=== PATIENT | male | born 1940 | race Caucasian/White ===

== ENCOUNTER → 2021-07-05 | Outpatient (CLI) | payer MEDICARE | END | disposition home or self-care (01) | LOC: LABPAT 11:28 | PROVIDERS: ATTEND Orthopaedic Surgery | DX: Z01.812 Encounter for preprocedural laboratory examination (principal); Z22.322 Carrier or suspected carrier of Methicillin resistant Staphylococcus aureus | CPT/HCPCS: 87070 ==

== ENCOUNTER 2021-07-09 05:33 | Day surgery (SDC) | payer MEDICARE ==
[2021-07-05 09:27] VITALS: BMI 25.8
[~2021-07-09 05:33] MED LIST: ACETAMINOPHEN TAB 500 MG TAB PO PRN; DEXAMETHASONE SOD PHOSPHATE 4 MG/ML 1 ML VIAL IV ONE; GABAPENTIN 300 MG CAP PO PRN; MELOXICAM 7.5 MG TAB PO PRN; ONDANSETRON 4 MG/2 ML VIAL IVP ONE; ROPIVACAINE/EPI/CLONIDINE/KET 50 ML SYRINGE MISCELLANE PRN; TRANEXAMIC ACID 1,000 MG in SODIUM CHLORIDE 0.9% 100 ML IVPB PRN
[2021-07-09] MEDS: LACTATED RINGERS 1,000 ML IV SCH ×2 (06:17→13:04)
[2021-07-09] MEDS ORDERED: MIDAZOLAM 2 MG/2 ML VIAL IVP ONE (06:42)
[2021-07-09] MEDS ORDERED: HYDROmorphone 0.5 MG/0.5 ML SYRINGE IVP PRN ×3 (07:00→07:09)
[2021-07-09] MEDS ORDERED: ROPIVACAINE 5 MG/ML 30 ML VIAL ONE (07:05)
[2021-07-09] MEDS ORDERED: TRANEXAMIC ACID 1,000 MG/10 ML VIAL ONE (07:05)
[2021-07-09] MEDS ORDERED: MIDAZOLAM 2 MG/2 ML VIAL ONE (07:05)
[2021-07-09] MEDS ORDERED: SODIUM CHLORIDE 0.9% 100 ML BAG ONE (07:05)
[2021-07-09] MEDS ORDERED: fentaNYL (PF) 50 MCG/ML 2 ML AMP ONE (07:05)
[2021-07-09] MEDS ORDERED: ceFAZolin 1,000 MG in SODIUM CHLORIDE 0.9% 1,000 ML IRRIGATION ONE (07:05)
[2021-07-09] MEDS ORDERED: bisacodyL 10 MG SUPP RECTAL PRN (07:09)
[2021-07-09] MEDS ORDERED: NALOXONE 0.4 MG/ML 1 ML VIAL IV PRN (07:09)
[2021-07-09] MEDS ORDERED: NA PHOS,M-B/NA PHOS,DI-BA 133 ML ENEMA RECTAL PRN (07:09)
[2021-07-09] MEDS ORDERED: HYDROmorphone 0.2 MG/1 ML SYRINGE IVP PRN (07:09)
[2021-07-09] MEDS ORDERED: MAGNESIUM HYDROXIDE 2,400 MG/10 ML CUP PO PRN (07:09)
[2021-07-09] MEDS ORDERED: ONDANSETRON 4 MG/2 ML VIAL IVP PRN (07:09)
[2021-07-09] MEDS ORDERED: HYDROcodone/APAP 7.5-325MG 1 EACH TAB PO PRN (07:11)
--- NOTE | 2021-07-09 08:18 | P.OP ---
Date of Procedure: 07/09/21 Preoperative Diagnosis: Severe osteoarthritis right knee Postoperative Diagnosis: Severe osteoarthritis right knee Procedure(s) Performed: Right total knee arthroplasty Implants: [employer]hew Journey II CR Oxinium cruciate retaining femoral component size 6, right [employer]ifeld [employer]hew Journey nonporous tibial baseplate size 5, right [employer] Journey II, XLPE Deep Dished articular insert, size 11 mm, Size 5-6, right [employer] Journey Adelia II resurfacing patellar component, oval, 32 mm All components were cemented using Palacos R bone cement The articulation is Oxinium on polyethylene Anesthesia: spinal Surgeon: Adama Ac Industrial Relations Officer #1: Carley Jensen Estimated Blood Loss (ml): 30 Pathology: other (Bone and cartilage) Condition: stable Disposition: PACU Indications for Procedure: After failure of conservative treatment we discussed the surgical and nonsurgical treatment options at length. Patient wishes to proceed with a total knee arthroplasty. Complications specific to this procedure were discussed at length, including but not limited to infection, bleeding, stiffness, and nerve injury. Covid-19 was also discussed at length with the patient, and they are aware of the current policies and procedures. The patient was given the option of delaying surgery, but they elect to proceed knowing these risks. Patient is aware of all these complications and informed consent was obtained Operative Findings: The operative findings are consistent with severe osteoarthritis of the right knee Description of Procedure: Patient was seen in the preoperative area and the consent was reviewed and the operative site was marked with a skin marker. The patient verified the procedure and the operative site. An adductor canal pain catheter and and an iPACK block was placed by anesthesia in the preoperative area. The patient was then brought to the operating room and given preoperative antibiotics intravenously. A gram of transexamic acid was given intravenously. A spinal anesthetic was administered by the anesthesia department. A tourniquet was placed on the upper thigh and the lower extremity was prepped with chlorhexidine and draped in usual sterile fashion. A universal timeout was then performed which confirmed the patient's name, surgical site, ALLERGIES, and consent. The lower extremity was then exsanguinated and tourniquet was inflated to 250 mmHg. A standard anterior midline approach to the knee was performed. The skin and subcutaneous tissue were sharply dissected down to the patellar tendon. A medial parapatellar arthrotomy was then performed. The knee was then extended, the patellar was everted, and the knee was again flexed. The infra-patellar fat pad was removed in order to enhance exposure. The anterior horns of both menisci were excised, and a release was performed to the posterior medial aspect of the knee. On gross visual inspection, there was complete loss of articular cartilage in the medial and patellofemoral joint spaces. There was also significant cartilage damage in the lateral compartment. There were multiple periarticular osteophytes globally about the knee which were then removed with a Ronguer. The femoral canal was then opened with the 9.5 mm intramedullary drill. The 8 mm intramedullary orly was then inserted into the femoral canal with the distal femoral cutting guide set for 5 of valgus. The distal femoral cutting block was then pinned in place. The intramedullary orly was then removed, and the distal femur was then cut. The cutting block was then removed and the cut was checked for symmetry. The resected bone was then measured to confirm the appropriate distal femoral resection. Next, the sizing guide was then placed and set for 3 external rotation based off of the epicondylar axis and Whitesides line. Pins were then placed and the drill holes, and the femur was sized with the sizing stylus. The pins were then removed, and the sizing guide was then removed. The spikes of the femoral block was then placed into the predrilled holes, and malleted into place. Two 45 mm pins were then placed into the fixation holes on the cutting block. An micky wing was then used to ensure there would be no notching with the anterior cut. The anterior condyles were cut without notching. The anterior chord cut was then performed, followed by the posterior cut, posterior chamfer cut, and the anterior chamfer cut. The collateral ligaments were protected during the entire process. The cutting block was then removed. Any remaining bone and osteophytes were removed from the femur with a Rominger. The femoral canal was plugged with autologous bone. Attention was then directed to the tibia. The remaining ACL was removed with a Ronguer, and the tibia was then gently subluxed forward with a large bent knee retractor. Any remaining menisci were excised. The posterior lateral corner was cauterized in order to coagulate the lateral geniculate artery. The extra medullary tibial cutting guide was then placed, set for the appropriate rotation, slope, and depth of resection. The proximal tibia cutting guide was then pinned in place. Proximal tibia was then cut and sized. The femoral trial was placed. A narrow saw blade was then used to remove the anterior intracondylar femoral bone. The CR notch trial was then placed. The tibial trial was placed with the appropriate-sized insert. The knee was able to fully extend and flex to 130 and was stable throughout all range of motion. The knee was then extended and the patella was everted. Patella was then measured, and then using an osteotomy guide, the patella was cut at the appropriate level. The patella was then measured and drilled and the patella trial was then placed. The knee was then taken through range of motion with the patella trial and the patella tracked normally using the no thumbs technique.. The knee was then extended patella trial was then removed and the patella was everted. Knee was then flexed and lug holes were drilled through the femoral trial and the femoral trial was then removed. The tibial was then re-exposed, and the tibial broach guide was then pinned in place after it was set for the appropriate rotation to allow for the most coverage without overhang. The tibia was then reamed and broached. The cut surfaces of bone were then irrigated with pulsatile lavage. The knee was also irrigated with Irrisept solution. The components were then opened, the cement was mixed, and the components were then cemented in place. The cement was allowed to harden with the knee in full extension. After the cemented hardened. The tourniquet was released, and hemostasis was obtained. A second gram of transexamic acid was given intravenously. The knee was again irrigated. The knee was again taken through range of motion and found to be stable throughout all range of motion of 0-130, and the patella tracked normally. The fascia was then closed with 0 Vicryl followed by #2 strata fix suture. The subcutaneous tissue was closed with 3-0 Vicryl and 3-0 strata fix. Exofin glue was used for the skin and placed with the knee in flexion. After the glue had dried, and Optafoam silver impregnated dressing was applied. The patient was then transferred to recovery room in stable condition. The instructional support assistant PATT Post was required due the complexity surgery and the need for a skilled surgical clinical reviewer. She assisted in positioning, draping, retraction, and closure of the wound.
[2021-07-09] MEDS ORDERED: ROPIVACAINE 0.2%-NS ON-Q PUMP 1,090 MG, EMPTY PAIN BALL 1 EACH MISCELLANE PRN (08:47)
--- NOTE | 2021-07-09 10:05 | XR ---
Right knee HISTORY: Status post right knee arthroplasty. 2 views of the right knee Patient is status post right knee arthroplasty. There is anatomic alignment. Lucencies present in the soft tissues. Small ossific fragments are suspected laterally which are likely postoperative. There are dense vascular calcifications. Soft tissue swelling noted. IMPRESSION: Orthopedic follow-up as described
[2021-07-09] MEDS ORDERED: LACTATED RINGERS 1,000 ML IV ONE (12:42)
[2021-07-09] MEDS ORDERED: SODIUM CHLORIDE 0.9% 1,000 ML IV ONE (12:42)
[2021-07-09] MEDS: SODIUM CHLORIDE 0.9% 1,000 ML IV SCH (13:04)
[2021-07-09] MEDS: HYDROcodone/APAP 7.5-325MG 1 EACH TAB PO PRN ×2 (16:17→22:22)
--- NOTE | 2021-07-09 16:36 | P.CONS ---
History of Present Illness - Reason for Consult Consult date: 07/09/21 - Chief Complaint Med management - History of Present Illness 80 -year-old man with a history of CAD, mitral valve repair, status post CABG, history of CVA, hypertension, osteoarthritis who presented for elective TKA. Medicine was consulted for medical management. Patient has no complaints at this time following his procedure, which went very well. He does report a modest amount of knee pain at the surgical site, otherwise has no other issues. Patient's review of systems is negative for fevers, chills, nausea, vomiting, chest pain, palpitations, sick, presyncope, abdominal pain, consultation, diarrhea, cough, dyspnea, dysuria, dyschezia, numbness/weakness of extremities. 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, hx a-fib after heart surgery, gout, History of Any Multi-Drug Resistant Organisms: None Reported Past Surgical History: Cardiac Valve Replacement, Hernia Repair, Joint Replacement, Orthopedic Surgery, Tonsillectomy Additional Past Surgical History / Comment(s): mitral valve repair 2005, left knee replacement, tendon reattached left elbow, Past Anesthesia/Blood Transfusion Reactions: No Reported Reaction Smoking Status: Former smoker - Past Family History Father Family Medical History: Cancer Medications and Allergies Home Medications Medication Instructions Recorded Confirmed Type Aspirin [Adult Low Dose Aspirin EC] 81 mg PO DAILY 07/05/21 07/05/21 History Atorvastatin [Lipitor] 80 mg PO QAM 07/05/21 07/05/21 History Biotin 10,000 mcg PO QAM 07/05/21 07/05/21 History Celecoxib [CeleBREX] 200 mg PO DAILY 07/05/21 07/05/21 History Docusate Sodium [Dok] 100 mg PO QAM 07/05/21 07/05/21 History Levothyroxine Sodium 100 mcg PO QAM 07/05/21 07/05/21 History Metoprolol Tartrate 12.5 mg PO QAM 07/05/21 07/05/21 History Sertraline [Zoloft] 50 mg PO HS 07/05/21 07/05/21 History Vitamin B Complex 1 each PO DAILY 07/05/21 07/05/21 History lisinopriL [Zestril] 5 mg PO HS 07/05/21 07/05/21 History Aspirin 325 mg PO BID #60 tab 07/09/21 Rx HYDROcodone/APAP 7.5-325MG [[place] 1 - 2 tab PO Q6H PRN #32 tab 07/09/21 Rx 7.5-325] Ondansetron Odt [Zofran Odt] 1 tab PO Q8HR PRN #10 tab 07/09/21 Rx Sennosides [Senokot] 2 tab PO DAILY PRN #60 tablet 07/09/21 Rx Allergies Allergy/AdvReac Type Severity Reaction Status Date / Time No Known Allergies Allergy Verified 07/05/21 09:09 Physical Exam Osteopathic Statement: *. No significant issues noted on an osteopathic structural exam other than those noted in the History and Physical/Consult. Vitals: Vital Signs Temp Pulse Pulse Resp BP Pulse Ox 07/09/21 15:25 18 07/09/21 13:12 18 07/09/21 13:02 97.9 F 73 18 104/65 98 07/09/21 12:34 98.0 F 58 L 16 113/59 100 07/09/21 12:04 57 L 16 104/57 97 07/09/21 11:32 55 L 16 114/55 100 07/09/21 11:00 55 L 16 123/59 100 07/09/21 10:30 58 L 16 106/55 97 07/09/21 10:00 56 L 16 98/56 96 07/09/21 09:45 56 L 16 100/59 96 07/09/21 09:30 54 L 16 96/51 96 07/09/21 09:15 54 L 16 110/59 98 07/09/21 09:03 53 L 16 115/69 98 07/09/21 08:49 53 L 16 115/66 98 07/09/21 08:42 98.0 F 54 L 16 128/64 98 07/09/21 07:00 65 14 107/59 98 07/09/21 06:10 97.8 F 68 18 122/67 97 Intake and Output 07/09/21 07/09/21 07/09/21 06:59 14:59 22:59 Intake Total 100 966 Output Total 30 Balance 100 936 Intake: IV 100 966 Sodium Chloride 0.9% 1, 65 000 ml @ 65 mls/hr IV . [id number] [facility] Rx#:[id number] Output: Estimated Blood Loss 30 Other: Weight 80.5 kg 80.5 kg Gen: awake, alert HEENT: normocephalic, atraumatic, good hearing acuity, moist mucous membranes Resp: good air exchange, breathing comfortably with no accessory muscle use CVS: good distal perfusion x 4, GI: soft, NTTP, ND : no SPT, no CVAT, vazquez catheter not present MSK: no pitting edema, no clubbing Neuro: non-focal, moving all extremities Psych: cooperative, euthymic mood Assessment and Plan Assessment: CAD status post CABG History mitral valve repair Probable sick sinus syndrome Hypertension Hyperlipidemia Hypothyroidism -Home medications reviewed and reconciled. Patient's medical conditions are all stable at this time. Medicine will continue to follow should any other issues arise. -daily BMP, Mg Thank you for this consult. [facility] [employer] is available 04/05 via perfect serve, please reach out if there are any questions/concerns.
[2021-07-09] MEDS ORDERED: SENNOSIDES-DOCUSATE SODIUM 1 EACH TAB PO SCH (21:00)
[2021-07-09] MEDS ORDERED: SERTRALINE 50 MG TAB PO SCH (21:00)
[2021-07-09] MEDS ORDERED: lisinopriL 5 MG TAB PO SCH (21:00)
[2021-07-09] MEDS: ASPIRIN 325 MG TAB PO SCH (22:22)
[2021-07-10] MEDS: SODIUM CHLORIDE 0.9% 1,000 ML IV SCH (00:23)
[2021-07-10 02:57] VITALS: TEMP 97.8
[2021-07-10] MEDS: HYDROcodone/APAP 7.5-325MG 1 EACH TAB PO PRN (06:04)
[2021-07-10] MEDS ORDERED: LEVOTHYROXINE 100 MCG TAB PO SCH (06:30)
[2021-07-10 06:33] LABS: African American GFR (CKD) >90 (>60 ml/min/1.73 sqM); Anion Gap 4 mmol/L; Blood Urea Nitrogen 27 mg/dL (9-20); Calcium 9.5 mg/dL (8.4-10.2); Carbon Dioxide 25 mmol/L (22-30); Chloride 106 mmol/L (98-107); Glucose 102 mg/dL (74-99); Magnesium 1.7 mg/dL (1.6-2.3); Non-African American GFR(CKD) 82 (>60 ml/min/1.73 sqM); Potassium 4.1 mmol/L (3.5-5.1); Sodium 135 mmol/L (137-145)
--- NOTE | 2021-07-10 07:08 | P.PN ---
Progress Note - Text Progress Note Date: 07/10/21 Postoperative day # 1 status post total knee arthroplasty, and adductor canal catheter placed for postoperative analgesia, currently at ropivacaine 0.2% 8 mL per hour and continuous infusion, visual analogue scale is 4/10, patient using oral pain medication for breakthrough pain. Assessment and plan= Acute postoperative pain, adductor canal catheter for pain control, pain is well controlled we'll continue the same management.
[2021-07-10 07:36] VITALS: BP 103/59; PULSE 67; RESP 17
--- NOTE | 2021-07-10 07:51 | P.DS ---
Providers Expected date of discharge: 07/10/21 Attending physician: Adama Ac Consults: 07/09/21 07:09 Consult Physician Routine Consulting Provider: Irlanda Rodriguez Consult Reason/Comments: medical management Do you want consulting provider notified?: Yes Primary care physician: Ankur Kim MD - Discharge Diagnosis(es) (1) Status post total right knee replacement Current Visit: Yes Status: Acute Hospital Course: This is a 80-year-old male who was last seen with complaint of continued right knee pain. The patient has a known history of degenerative arthritis of the right knee and presents to discuss surgical options. After discussion and consideration the patient elects to proceed with total right knee arthroplasty. The patient is seen preoperatively by his primary care physician and cleared for surgery. The patient is admitted to [facility] for total right knee arthroplasty. The procedures performed without complication or sequelae. Patient is doing well postoperatively. Vital signs are stable at discharge. Labs are stable at discharge. the patient is ambulating well with walker with minimal assistance. The patient is discharged to home on postop day #1 pending medical clearance. Please see orders and refer to the [facility] rec for accurate list of medications. Patient Condition at Discharge: Good Plan - Discharge Summary Discharge Rx Participant: No New Discharge Prescriptions: New Sennosides [Senokot] 2 tab PO DAILY PRN #60 tablet PRN Reason: Constipation Ondansetron Odt [Zofran Odt] 1 tab PO Q8HR PRN #10 tab PRN Reason: Nausea Aspirin 325 mg PO BID #60 tab HYDROcodone/APAP 7.5-325MG [[place] 7.5-325] 1 - 2 tab PO Q6H PRN #32 tab PRN Reason: Pain No Action Biotin 10,000 mcg PO QAM Aspirin [Adult Low Dose Aspirin EC] 81 mg PO DAILY Celecoxib [CeleBREX] 200 mg PO DAILY lisinopriL [Zestril] 5 mg PO HS Sertraline [Zoloft] 50 mg PO HS Metoprolol Tartrate 12.5 mg PO QAM Vitamin B Complex 1 each PO DAILY Docusate Sodium [Dok] 100 mg PO QAM Levothyroxine Sodium 100 mcg PO QAM Atorvastatin [Lipitor] 80 mg PO QAM Discharge Medication List Aspirin [Adult Low Dose Aspirin EC] 81 mg PO DAILY 07/05/21 [History] Atorvastatin [Lipitor] 80 mg PO QAM 07/05/21 [History] Biotin 10,000 mcg PO QAM 07/05/21 [History] Celecoxib [CeleBREX] 200 mg PO DAILY 07/05/21 [History] Docusate Sodium [Dok] 100 mg PO QAM 07/05/21 [History] Levothyroxine Sodium 100 mcg PO QAM 07/05/21 [History] Metoprolol Tartrate 12.5 mg PO QAM 07/05/21 [History] Sertraline [Zoloft] 50 mg PO HS 07/05/21 [History] Vitamin B Complex 1 each PO DAILY 07/05/21 [History] lisinopriL [Zestril] 5 mg PO HS 07/05/21 [History] Aspirin 325 mg PO BID #60 tab 07/09/21 [Rx] HYDROcodone/APAP 7.5-325MG [[place] 7.5-325] 1 - 2 tab PO Q6H PRN #32 tab 07/09/21 [Rx] Ondansetron Odt [Zofran Odt] 1 tab PO Q8HR PRN #10 tab 07/09/21 [Rx] Sennosides [Senokot] 2 tab PO DAILY PRN #60 tablet 07/09/21 [Rx] Follow up Appointment(s)/Referral(s): [facility],Equipment [NON-STAFF] - (Please call [facility] once home to arrange delivery of the Continuous Passive Motion (CPM) machine.) Adama Ac DO [Doctor of Osteopathic Medicine] - 2 Weeks Ambulatory/Diagnostic Orders: Continuous Passive Motion (CPM) Machine [DME.AMB1] Time Frame: 3 Weeks, Location: None Selected Activity/Diet/Wound Care/Special Instructions: Weightbearing as tolerated with a walker. CPM 5-6h daily as tolerated. Leave dressing intact. Dressing may be removed by home care nurse or by patient in 7 days. Then change dressing twice daily until follow up. May shower with initial dressing intact and after removal. If dressing become saturated, please remove. Recommend use of compression stockings daily until follow up to help prevent swelling and blood clots. May remove at night before sleeping. Please take aspirin 325mg twice daily for 30 days to prevent blood clots. Please follow up with [facility] and call with any questions or concerns, . Discharge Disposition: HOME WITH HOME HEALTH SERVICES
[2021-07-10] MEDS: ASPIRIN 325 MG TAB PO SCH (08:51)
[2021-07-10] MEDS ORDERED: ATORVASTATIN 80 MG TAB PO SCH (09:00)
[2021-07-10] MEDS ORDERED: DOCUSATE 100 MG CAP PO SCH (09:00)
[2021-07-10] MEDS ORDERED: METOPROLOL TARTRATE 12.5 MG TAB PO SCH (09:00)
[2021-07-10 09:41] LABS: Basophils # (A) 0.03 X 10*3/uL (0.00-0.10); Basophils % (A) 0.2 %; Eosinophils # (A) 0.05 X 10*3/uL (0.04-0.35); Eosinophils % (A) 0.4 %; HCT 31.5 % (39.6-50.0); HGB 10.5 g/dL (13.0-17.0); Lymphocytes # (A) 1.55 X 10*3/uL (0.90-5.00); Lymphocytes % (A) 12.4 %; MCH 32.2 pg (27.0-32.0); MCHC 33.3 g/dL (32.0-37.0); MCV 96.6 fL (80.0-97.0); Monocytes # (A) 1.48 X 10*3/uL (0.20-1.00); Monocytes % (A) 11.9 %; Neutrophils # (A) 9.28 X 10*3/uL (1.80-7.70); Neutrophils % (A) 74.6 %; Platelet Count 189 X 10*3/uL (140-440); RBC 3.26 X 10*6/uL (4.40-5.60); RDW 16.5 % (11.5-14.5); WBC 12.45 X 10*3/uL (4.50-10.00)
--- NOTE | 2021-07-10 10:35 | P.PN ---
Subjective Progress Note Date: 07/10/21 No new complaints. Pt is medically cleared for discharge today. Objective - Vital Signs Vital signs: Vital Signs Temp 97.8 F 07/10/21 07:36 Pulse 67 07/10/21 07:36 Resp 17 07/10/21 07:36 BP 103/59 07/10/21 07:36 Pulse Ox 98 07/10/21 07:36 Intake & Output 07/09/21 07/10/21 07/10/21 18:59 06:59 18:59 Intake Total 1146 Output Total 30 1250 Balance 1116 -1250 Weight 80.5 kg Intake: IV 1096 Sodium Chloride 0.9% 1, 195 000 ml @ 65 mls/hr IV . [id number] [facility] Rx#:[id number] Intake, IV Titration 50 Amount ceFAZolin 2 gm In Sodium 50 Chloride 0.9% 50 ml @ 100 mls/hr IVPB Q8HR [facility] Rx# :[id number] Output: Urine 1250 Estimated Blood Loss 30 Other: # Voids 1 - Exam Gen: awake, alert HEENT: normocephalic, atraumatic, good hearing acuity, moist mucous membranes Resp: good air exchange, breathing comfortably with no accessory muscle use CVS: good distal perfusion x 4, GI: soft, NTTP, ND : no SPT, no CVAT, vazquez catheter not present MSK: no pitting edema, no clubbing Neuro: non-focal, moving all extremities Psych: cooperative, euthymic mood - Labs CBC & Chem 7: 07/10/21 05:44 07/10/21 05:44 Labs: Abnormal Lab Results - Last 24 Hours (Table) 07/10/21 07/10/21 Range/Units 05:44 05:44 WBC 12.45 H (4.50-10.00) X 10*3/uL RBC 3.26 L (4.40-5.60) X 10*6/uL Hgb 10.5 L (13.0-17.0) g/dL Hct 31.5 L (39.6-50.0) % MCH 32.2 H (27.0-32.0) pg RDW 16.5 H (11.5-14.5) % Immature Gran # 0.06 H (0.00-0.04) X 10*3/uL Neutrophils # 9.28 H (1.80-7.70) X 10*3/uL Monocytes # 1.48 H (0.20-1.00) X 10*3/uL Sodium 135 L (137-145) mmol/L BUN 27 H (9-20) mg/dL Glucose 102 H (74-99) mg/dL Assessment and Plan Assessment: CAD status post CABG History mitral valve repair Probable sick sinus syndrome Hypertension Hyperlipidemia Hypothyroidism -Home medications reviewed and reconciled. Patient's medical conditions are all stable at this time. Medicine will continue to follow should any other issues arise. -daily BMP, Mg Thank you for this consult. [facility] is available 04/05 via perfect serve, please reach out if there are any questions/concerns.
--- NOTE | 2021-07-10 13:19 | P.ANPRN ---
Procedure Note - Anesthesia - Nerve Block Performed Right Adductor Canal Infusion Time Out Performed: Yes Date of Procedure: 07/09/21 Procedure Start Time: 06:41 Procedure Stop Time: 06:50 Location of Patient: PreOp Indication: Acute Post-Operative Pain, Requested by Surgeon Sedation Type: Sedate with meaningful contact maintained Preparation: Sterile Prep, Sterile Dressing (ropi .5% 20cc) Position: Supine Needle Gauge: 21 Ultrasound used to visualize needle placement: Yes Ultrasound used to observe medication spread: Yes Blood Aspirated: No Pain Paresthesia on Injection Noted: No Resistance on Injection: Normal Image Stored and Saved: Yes Events: Uneventful and Well Tolerated
--- NOTE | 2021-07-10 13:20 | P.ANPRN ---
Procedure Note - Anesthesia - Nerve Block Performed Right Nikita Single Time Out Performed: Yes Date of Procedure: 07/09/21 Location of Patient: PreOp Indication: Acute Post-Operative Pain, Requested by Surgeon Sedation Type: Sedate with meaningful contact maintained Preparation: Sterile Prep Position: Supine Needle Types: Pajunk Needle Gauge: 21 Ultrasound used to visualize needle placement: Yes Ultrasound used to observe medication spread: Yes Blood Aspirated: No Pain Paresthesia on Injection Noted: No Resistance on Injection: Normal Image Stored and Saved: Yes Events: Uneventful and Well Tolerated (ropi .5% 25cc plus dexamethasone 4mg)
== END 2021-07-10 11:46 | disposition home health service (06) ==
LOC: OR 05:33 → 4SSUR 08:42 → OR 07-10 11:46
PROVIDERS: ATTEND Orthopaedic Surgery
DX: M17.11 Unilateral primary osteoarthritis, right knee (principal); I11.9 Hypertensive heart disease without heart failure; E03.9 Hypothyroidism, unspecified; Z86.73 Personal history of transient ischemic attack (TIA), and cerebral infarction without residual deficits; H91.90 Unspecified hearing loss, unspecified ear; Z97.3 Presence of spectacles and contact lenses; Z87.891 Personal history of nicotine dependence; I25.10 Atherosclerotic heart disease of native coronary artery without angina pectoris; Z95.1 Presence of aortocoronary bypass graft; I48.91 Unspecified atrial fibrillation; E78.5 Hyperlipidemia, unspecified; M10.9 Gout, unspecified; Z98.890 Other specified postprocedural states; Z79.1 Long term (current) use of non-steroidal anti-inflammatories (NSAID); Z79.82 Long term (current) use of aspirin; Z79.899 Other long term (current) drug therapy
CPT/HCPCS: 97116; 97162; 64999; 64448; 76942; 80048; 83735; 85025; 88300; 87635; 73560; 27447; C1713; C1776; J2250; J1100; J0690 ×3; J2405; J2795

== ENCOUNTER → 2023-06-08 | Outpatient (CLI) | payer MEDICARE ==
--- NOTE | 2023-06-08 10:50 | US ---
EXAMINATION TYPE: US liver DATE OF EXAM: 06/08/2023 COMPARISON: NONE CLINICAL INDICATION: Male, 82 years old with history of R74.01 ELEVATION OF LEVELS OF LIVER; TECHNIQUE: Multiple sonographic images of the right upper quadrant are obtained. FINDINGS: EXAM MEASUREMENTS: Liver Length: 15.6 cm Gallbladder Wall: 0.2 cm CBD: 0.5 cm Right Kidney: 10.8 x 5.0 x 4.4 cm Pancreas: obscured by overlying midline bowel gas Liver: scanned intercostally, wnl as seen Gallbladder: 0.8cm hyperechoic area seen within neck of gallbladder, not seen well in LLD position Evidence for sonographic Perkins's sign: no CBD: visualized portions wnl, limited by overlying bowel gas Right Kidney: wnl IMPRESSION: 1. Gallstone in the gallbladder neck. 2. Coarsened echotexture to the liver suggestive of hepatocellular disease.
== END | disposition home or self-care (01) ==
LOC: RADUSWWP 08:38
PROVIDERS: ATTEND Internal Medicine
DX: K80.20 Calculus of gallbladder without cholecystitis without obstruction (principal); R74.01 Elevation of levels of liver transaminase levels
CPT/HCPCS: 76705

== ENCOUNTER 2023-06-24 06:13 | Day surgery (SDC) | payer MEDICARE ==
[2023-06-23 08:55] VITALS: BMI 24.3
[~2023-06-24 06:13] MED LIST changes: -GABAPENTIN 300 MG CAP PO PRN; +HEPARIN SODIUM,PORCINE/PF 5,000 UNIT/0.5 ML SYRINGE SQ PRN; +LACTATED RINGERS 1,000 ML IV SCH; +LIDOCAINE 1% (10MG/ML) FOR IV START INTRADERMA PRN; -MELOXICAM 7.5 MG TAB PO PRN; -ROPIVACAINE/EPI/CLONIDINE/KET 50 ML SYRINGE MISCELLANE PRN; -TRANEXAMIC ACID 1,000 MG in SODIUM CHLORIDE 0.9% 100 ML IVPB PRN; +droPERidol 5 MG/2 ML VIAL IVP ONE
[2023-06-24] MEDS ORDERED: LACTATED RINGERS 1,000 ML IV ONE (06:41)
[2023-06-24] MEDS ORDERED: HYDROmorphone 0.5 MG/0.5 ML SYRINGE IVP PRN (07:00)
[2023-06-24 07:25] LABS: Basophils % (A) 1 %; Eosinophils # (A) 0.2 k/uL (0-0.7); Eosinophils % (A) 3 %; HCT 38.5 % (39.0-53.0); HGB 13.3 gm/dL (13.0-17.5); Lymphocytes # (A) 1.7 k/uL (1.0-4.8); Lymphocytes % (A) 24 %; MCH 34.7 pg (25.0-35.0); MCHC 34.5 g/dL (31.0-37.0); MCV 100.6 fL (80.0-100.0); Macrocytosis Slight; Mean Platelet Volume 9.3; Monocytes # (A) 0.7 k/uL (0-1.0); Monocytes % (A) 10 %; Neutrophils % (A) 59 %; Platelet Count 209 k/uL (150-450); RBC 3.83 m/uL (4.30-5.90); RDW 14.9 % (11.5-15.5); WBC 6.8 k/uL (3.8-10.6)
[2023-06-24] MEDS ORDERED: fentaNYL (PF) 50 MCG/ML 2 ML AMP ONE (07:35)
[2023-06-24] MEDS ORDERED: PROPOFOL 10 MG/ML 20 ML VIAL IV ONE (07:35)
[2023-06-24] MEDS ORDERED: LIDOCAINE 2% INJ 20 MG/ML (2 ML VIAL) ONE (07:35)
[2023-06-24] MEDS ORDERED: SUCCINYLCHOLINE CHLORIDE 200 MG/10 ML VIAL IV ONE (07:35)
[2023-06-24] MEDS ORDERED: ROCURONIUM 10 MG/ML (5 ML VIAL) IV ONE (07:35)
[2023-06-24] MEDS ORDERED: GLYCOPYRROLATE 0.2 MG/ML 2 ML VIAL ONE (07:35)
[2023-06-24] MEDS ORDERED: ePHEDrine 50 MG/ML 1 ML VIAL ONE (07:35)
[2023-06-24] MEDS ORDERED: PHENYLEPHRINE-0.9% NACL SYG 1,000 MCG/10 ML SYRINGE ONE (07:35)
[2023-06-24] MEDS ORDERED: MIDAZOLAM 2 MG/2 ML VIAL ONE (07:35)
[2023-06-24] MEDS ORDERED: NEOSTIGMINE 1 MG/ML 10 ML VIAL ONE (07:35)
[2023-06-24 07:39] LABS: ALT 32 U/L (4-49); AST 41 U/L (17-59); African American GFR (CKD) >90 (>60 ml/min/1.73 sqM); Albumin 3.7 g/dL (3.5-5.0); Alkaline Phosphatase 79 U/L (38-126); Anion Gap 4 mmol/L; Blood Urea Nitrogen 20 mg/dL (9-20); Carbon Dioxide 27 mmol/L (22-30); Chloride 107 mmol/L (98-107); Glucose 91 mg/dL (74-99); Non-African American GFR(CKD) 78 (>60 ml/min/1.73 sqM); Potassium 4.7 mmol/L (3.5-5.1); Sodium 138 mmol/L (137-145); Total Bilirubin 1.1 mg/dL (0.2-1.3); Total Protein 6.4 g/dL (6.3-8.2)
[2023-06-24] MEDS ORDERED: LIDOCAINE 1%-EPI 1:100,000 50 ML VIAL SQ ONE ×2 (07:56)
--- NOTE | 2023-06-24 08:26 | P.OP ---
Date of Procedure: 06/24/23 Preoperative Diagnosis: Cholecystitis Postoperative Diagnosis: Cholecystitis Procedure(s) Performed: Laparoscopic cholecystectomy Anesthesia: KARYN Surgeon: Andres Amos Estimated Blood Loss (ml): 5 Pathology: other (Gallbladder) Condition: stable Disposition: PACU Description of Procedure: The patient was placed on the operating table. The patient received a general endotracheal tube anesthesia. The patients abdomen was prepped and draped in the usual sterile fashion. Through an infraumbilical stab incision, the fascia of the anterior abdominal wall was grasped with a pair of Kochers and then the Veress needle was placed in the peritoneal cavity. Position of the Veress needle was confirmed with positive drop test. The abdomen was then insufflated. After adequate insufflation, the 10 mm trocar was placed in the peritoneal cavity. Following this the laparoscope was placed in the peritoneal cavity. The patient was placed in the head-up, right side up position and then a 5 mm trocar was placed in the right lateral and right subcostal position under direct visualization. A 8 mm trocar was placed in the epigastric position. The gallbladder was grasped in the fundus and infundibulum. Traction on the gallbladder was placed in the lateral and the cephalad positions. The triangle of Calot was visualized.. The cystic duct was bluntly dissected until the union of the cystic duct and common bile duct was seen. A critical view of safety was achieved. The cystic duct was then divided and sealed with the Harmonic scissors. A PDS Endoloop was then placed throughout the cystic duct stump. The cystic artery divided and sealed with the Harmonic scissors. The gallbladder was then removed from the liver bed using Harmonic scissors. The gallbladder was then extracted through the epigastric port site. Operative field was checked for any bleeding spots and Harmonic scissors was used to coagulate the liver bed. The abdomen was irrigated. The trocars were removed. The skin was closed using interrupted 3-0 Vicryl suture. Dermabond dressing were applied. The patient tolerated the procedure well.
[2023-06-24 08:27] VITALS: TEMP 97.5
[2023-06-24 09:25] VITALS: RESP 16
[2023-06-24] MEDS ORDERED: TAMSULOSIN 0.4 MG CAP.ER.24H PO ONE (11:38)
[2023-06-24 13:31] VITALS: BP 121/69; PULSE 73
== END 2023-06-24 14:12 | disposition home or self-care (01) ==
LOC: OR 06:13
PROVIDERS: ATTEND Surgery
DX: K81.1 Chronic cholecystitis (principal); K82.8 Other specified diseases of gallbladder
CPT/HCPCS: 88304; 80053; 85025; 47562; J2250; J0330; J1100; J2710; J0690; J2405; J3010; J2704; J1644; J2001; J2371

== ENCOUNTER → 2024-04-05 | Outpatient (CLI) | payer MEDICARE | LOC: CPPFTMAIN 10:07 | PROVIDERS: ATTEND Internal Medicine | DX: J44.9 Chronic obstructive pulmonary disease, unspecified (principal) | CPT/HCPCS: 94060; 94726; 94729 ==

== ENCOUNTER 2025-03-17 15:10 | Inpatient (IN) | payer MEDICARE ==
--- NOTE | 2025-03-17 15:36 | ED ---
General Adult HPI - General Chief complaint: Neuro Symptoms/Deficit Stated complaint: AMS,Speech issue Time Seen by Provider: 03/17/25 15:18 Source: patient, family, RN notes reviewed, old records reviewed Mode of arrival: ambulatory Limitations: altered mental status - History of Present Illness Initial comments: 84-year-old male presenting with confusion and speech abnormality. Patient is unable to give a detailed history due to expressive aphasia. His is at bedside stating that he left the home at 10:30 AM. He presents for evaluation at 1510. Patient has no prior history of CVA. He has a history of coronary artery disease. The reports no anticoagulation. Patient had left a home without complaint at 1030 and was not seen in between. - Related Data Home Medications Medication Instructions Recorded Confirmed Aspirin [Adult Low Dose Aspirin EC] 81 mg PO DAILY 07/05/21 03/17/25 Atorvastatin [Lipitor] 80 mg PO DAILY 07/05/21 03/17/25 Biotin 10,000 mcg PO DAILY 07/05/21 03/17/25 Metoprolol Tartrate 12.5 mg PO DAILY 07/05/21 03/17/25 Sertraline [Zoloft] 50 mg PO HS 07/05/21 03/17/25 lisinopriL [Zestril] 5 mg PO HS 07/05/21 03/17/25 Famotidine [Pepcid] 20 mg PO BID 06/23/23 03/17/25 Levothyroxine Sodium [Synthroid] 88 mcg PO DAILY 06/23/23 03/17/25 Cyanocobalamin (Vitamin B-12) 1,000 mcg PO DAILY 03/17/25 03/17/25 [Vitamin B-12] Docusate [Colace] 100 mg PO DAILY 03/17/25 03/17/25 Zolpidem [Ambien] 5 mg PO HS PRN 03/17/25 03/17/25 Allergies Allergy/AdvReac Type Severity Reaction Status Date / Time No Known Allergies Allergy Verified 03/17/25 16:00 Review of Systems ROS Statement: Those systems with pertinent positive or pertinent negative responses have been documented in the HPI. ROS Other: All systems not noted in ROS Statement are negative. 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 History of Any Multi-Drug Resistant Organisms: None Reported Past Surgical History: Joint Replacement, Orthopedic Surgery Additional Past Surgical History / Comment(s): mitral valve repair, left arm tendon reattachment , holli total knees. Past Anesthesia/Blood Transfusion Reactions: No Reported Reaction Past Psychological History: No Psychological Hx Reported Smoking Status: Former smoker Past Alcohol Use History: None Reported Past Drug Use History: None Reported - Past Family History Father Family Medical History: Cancer General Exam Limitations: no limitations General appearance: alert, in distress Head exam: Present: atraumatic, normocephalic Eye exam: Present: normal appearance, PERRL Neck exam: Present: normal inspection. Absent: tenderness, meningismus Respiratory exam: Present: normal lung sounds bilaterally. Absent: respiratory distress, wheezes Cardiovascular Exam: Present: regular rate, normal rhythm GI/Abdominal exam: Present: soft. Absent: distended, tenderness, guarding Neurological exam: Present: alert, motor sensory deficit (Patient has an expressive aphasia and dysarthria he has a dbldmy-sa-[id number] ataxia on the right upper extremity. ). Absent: oriented X3, CN II-XII intact Psychiatric exam: Present: anxious Skin exam: Present: warm, dry, intact Course Vital Signs 03/17/25 15:11 Temperature 97.8 F Pulse Rate 68 Respiratory 18 Rate Blood Pressure 125/68 O2 Sat by Pulse 98 Oximetry Medical Decision Making - Medical Decision Making Was pt. sent in by a medical professional or institution (Dr. PA, SPRUE CUTTING PRESS OPERATOR, urgent care, hospital, or care home...) When possible be specific @ -No Did you speak to anyone other than the patient for history (EMS, parent, family, police, friend...)? What history was obtained from this source @ -No Did you review nursing and triage notes (agree or disagree)? Why? @ -I reviewed and agree with nursing and triage notes Were old charts reviewed (outside hosp., previous admission, EMS record, old EKG, old radiological studies, urgent care reports/EKG's, care home records)? Report findings @ -No old charts were reviewed Differential CVA Ischemic stroke, hemorrhagic stroke, brain tumor, atypical migraine, Wernicke's encephalopathy, seizure, multiple sclerosis, meningitis, encephalitis, hypoglycemia, Guillain-Sandy, electrolytes disturbance, myasthenia gravis.... This is not meant to be an all-inclusive list EKG interpreted by me (3pts min.). @Sinus rhythm with first-degree AV block, right bundle branch block, rate of 70, DE interval 321, QRS duration 154, QTc [address] segment elevation. X-rays interpreted by me (1pt min.). @Single view chest x-ray negative for acute cardiopulmonary findings CT interpreted by me (1pt min.). @CT brain negative for intracranial hemorrhage, showing a hypodensity consistent with acute or subacute infarct. CT angiography negative for acute occlusion or stenosis. U/S interpreted by me (1pt. min.). @ -None done What testing was considered but not performed or refused? (CT, X-rays, U/S, labs)? Why? @ -None What meds were considered but not given or refused? Why? @ -None Did you discuss the management of the patient with other professionals (professionals i.e. , PA, SPRUE CUTTING PRESS OPERATOR, lab, RT, psych nurse, renal social worker, registered nurse first assistant, teacher, corporate development officer, case management associate)? Give summary @Case discussed with the stroke interventional list Dr. Sher, recommend medical management at this time. Patient is outside the thrombolytic window and has a low NIH. Sound physician group Dr. Perez Was smoking cessation discussed for >3mins.? @ -No Was critical care preformed (if so, how long)? @ -Yes, 35 minutes Were there social determinants of health that impacted care today? How? (Homelessness, low income, unemployed, alcoholism, drug addiction, transportation, low edu. Level, literacy, decrease access to med. care, detention, rehab)? @ -No Was there de-escalation of care discussed even if they declined (Discuss DNR or withdrawal of care, Hospice)? DNR status @ -No What co-morbidities impacted this encounter? (DM, HTN, Smoking, COPD, CAD, Cancer, CVA, ARF, Chemo, Hep., AIDS, mental health diagnosis, sleep apnea, mor bid obesity)? @CAD. Was patient admitted / discharged? Hospital course, mention meds given and route , prescriptions, significant lab abnormalities, going to OR and other pertinent info. @ -84-year-old male presenting with acute onset expressive aphasia and dysarthria. Initial NIH is somewhat variable between 4-6. Patient is a activated code stroke he is outside of the thrombolytic window but does receive a CT CT angiography. CT shows a hypodensity consistent with acute CVA. He is given aspirin and IV fluids in the emergency department with some improvement in symptoms. Patient will be admitted to internal medicine, [facility] with neurology placed on consult. Undiagnosed new problem with uncertain prognosis? @ -No Drug Therapy requiring intensive monitoring for toxicity (Heparin, Nitro, Insulin, Cardizem)? @ -No Were any procedures done? @ -No Diagnosis/symptom? @ -CVA Acute, or Chronic, or Acute on Chronic? @ -acute Uncomplicated (without systemic symptoms) or Complicated (systemic symptoms)? @ -Complicated Side effects of treatment? @ -No Exacerbation, Progression, or Severe Exacerbation? @ -No Poses a threat to life or bodily function? How? (Chest pain, [place], [place], pneumonia, PE, COPD, DKA, ARF, appy, cholecystitis, CVA, Diverticulitis, Homicidal, Suicidal, threat to staff... and all critical care pts) @ -[Yes, CVA - Lab Data Result diagrams: 03/17/25 15:26 03/17/25 15:26 Lab Results 03/17/25 03/17/25 03/17/25 Range/Units 15:26 15:26 15:26 WBC 8.29 (4.50-10.00) 10*3/uL RBC 3.96 L (4.40-5.60) 10*6/uL Hgb 12.9 L (13.0-17.0) g/dL Hct 37.5 L (39.6-50.0) % MCV 94.7 (80.0-97.0) fL MCH 32.6 H (27.0-32.0) pg MCHC 34.4 (32.0-37.0) g/dL Plt Count 177 (140-440) 10*3/uL MPV 11.1 (9.5-12.2) fL Immature Gran % (Auto) 0.2 % Neutrophils % 58.8 % Lymphocytes % 27.9 % Monocytes % 9.5 % Eosinophils % 2.8 % Basophils % 0.8 % Immature Gran # 0.02 (0.00-0.04) 10*3/uL Neutrophils # 4.87 (1.80-7.70) 10*3/uL Lymphocytes # 2.31 (0.90-5.00) 10*3/uL Monocytes # 0.79 (0.20-1.00) 10*3/uL Eosinophils # 0.23 (0.04-0.35) 10*3/uL Basophils # 0.07 (0.00-0.10) 10*3/uL PT 10.6 (10.0-12.5) sec INR 1.0 (<1.2) APTT 22.8 (22.0-30.0) sec Sodium 136 L (137-145) mmol/L Potassium 4.5 (3.5-5.1) mmol/L Chloride 103 (98-107) mmol/L Carbon Dioxide 25 (22-30) mmol/L Anion Gap 8 mmol/L BUN 23 H (9-20) mg/dL Creatinine 0.95 (0.66-1.25) mg/dL Est GFR (CKD-EPI)AfAm 86 (>60 ml/min/1.73 sqM) Est GFR (CKD-EPI)NonAf 74 (>60 ml/min/1.73 sqM) Glucose 85 (74-99) mg/dL Calcium 10.3 H (8.4-10.2) mg/dL Total Bilirubin 1.4 H (0.2-1.3) mg/dL AST 45 (17-59) U/L ALT 32 (4-49) U/L Alkaline Phosphatase 95 (38-126) U/L Creatine Kinase 147 (55-170) U/L Troponin I (0.000-0.034) ng/mL Total Protein 6.9 (6.3-8.2) g/dL Albumin 4.2 (3.5-5.0) g/dL /04/05 Range/Units 15:26 WBC (4.50-10.00) 10*3/uL RBC (4.40-5.60) 10*6/uL Hgb (13.0-17.0) g/dL Hct (39.6-50.0) % MCV (80.0-97.0) fL MCH (27.0-32.0) pg MCHC (32.0-37.0) g/dL Plt Count (140-440) 10*3/uL MPV (9.5-12.2) fL Immature Gran % (Auto) % Neutrophils % % Lymphocytes % % Monocytes % % Eosinophils % % Basophils % % Immature Gran # (0.00-0.04) 10*3/uL Neutrophils # (1.80-7.70) 10*3/uL Lymphocytes # (0.90-5.00) 10*3/uL Monocytes # (0.20-1.00) 10*3/uL Eosinophils # (0.04-0.35) 10*3/uL Basophils # (0.00-0.10) 10*3/uL PT (10.0-12.5) sec INR (<1.2) APTT (22.0-30.0) sec Sodium (137-145) mmol/L Potassium (3.5-5.1) mmol/L Chloride (98-107) mmol/L Carbon Dioxide (22-30) mmol/L Anion Gap mmol/L BUN (9-20) mg/dL Creatinine (0.66-1.25) mg/dL Est GFR (CKD-EPI)AfAm (>60 ml/min/1.73 sqM) Est GFR (CKD-EPI)NonAf (>60 ml/min/1.73 sqM) Glucose (74-99) mg/dL Calcium (8.4-10.2) mg/dL Total Bilirubin (0.2-1.3) mg/dL AST (17-59) U/L ALT (4-49) U/L Alkaline Phosphatase (38-126) U/L Creatine Kinase (55-170) U/L Troponin I <0.012 (0.000-0.034) ng/mL Total Protein (6.3-8.2) g/dL Albumin (3.5-5.0) g/dL Critical Care Time Critical Care Time: Yes Total Critical Care Time: 35 Disposition Clinical Impression: Cerebrovascular accident (CVA) Disposition: ADMITTED IP TO THIS [facility] Condition: Stable Is patient prescribed a controlled substance at d/c from ED?: No Referrals: Ankur Kim DO [Primary Care Provider] - 1-2 days Time of Disposition: 16:30
[2025-03-17 15:45] LABS: Basophils # (A) 0.07 10*3/uL (0.00-0.10); Basophils % (A) 0.8 %; Eosinophils # (A) 0.23 10*3/uL (0.04-0.35); Eosinophils % (A) 2.8 %; HCT 37.5 % (39.6-50.0); HGB 12.9 g/dL (13.0-17.0); Lymphocytes # (A) 2.31 10*3/uL (0.90-5.00); Lymphocytes % (A) 27.9 %; MCH 32.6 pg (27.0-32.0); MCHC 34.4 g/dL (32.0-37.0); MCV 94.7 fL (80.0-97.0); Mean Platelet Volume 11.1 fL (9.5-12.2); Monocytes # (A) 0.79 10*3/uL (0.20-1.00); Monocytes % (A) 9.5 %; Neutrophils # (A) 4.87 10*3/uL (1.80-7.70); Neutrophils % (A) 58.8 %; Platelet Count 177 10*3/uL (140-440); RBC 3.96 10*6/uL (4.40-5.60); RDW 15.8 % (11.5-14.5); WBC 8.29 10*3/uL (4.50-10.00)
[2025-03-17] MEDS: SODIUM CHLORIDE 0.9% 1,000 ML IV ONE (15:50)
[2025-03-17 15:56] LABS: ALT 32 U/L (4-49); AST 45 U/L (17-59); African American GFR (CKD) 86 (>60 ml/min/1.73 sqM); Albumin 4.2 g/dL (3.5-5.0); Alkaline Phosphatase 95 U/L (38-126); Anion Gap 8 mmol/L; Blood Urea Nitrogen 23 mg/dL (9-20); Calcium 10.3 mg/dL (8.4-10.2); Carbon Dioxide 25 mmol/L (22-30); Chloride 103 mmol/L (98-107); Creatine Kinase 147 U/L (55-170); Glucose 85 mg/dL (74-99); Non-African American GFR(CKD) 74 (>60 ml/min/1.73 sqM); Potassium 4.5 mmol/L (3.5-5.1); Sodium 136 mmol/L (137-145); Total Bilirubin 1.4 mg/dL (0.2-1.3); Total Protein 6.9 g/dL (6.3-8.2)
[2025-03-17 16:05] LABS: Partial Thromboplastin Time 22.8 sec (22.0-30.0); Prothrombin Time 10.6 sec (10.0-12.5)
--- NOTE | 2025-03-17 16:06 | CT ---
EXAMINATION TYPE: CT angio head neck DATE OF EXAM: 03/17/2025 4:01 PM COMPARISON: None. CLINICAL INDICATION: Male, 84 years old with history of Neuro deficit, acute, stroke suspected, Code stroke. Aphasia and deficits on rt side. TECHNIQUE: CTA scan is performed with axial images are obtained, coronal and sagittal reformatted vanita ges are reviewed. MIP images created on a separate workstation and submitted for review. 3-D reconstr ucted images are created on an independent workstation and reviewed. Source images are reviewed. SATISH CET criteria was used in interpretation of this exam? Contrast used:65 ml mL of Isovue 370 with IV Contrast, (none if empty) Oral contrast used: (none if empty) CT DLP: 518 mGycm, Automated exposure control for dose reduction was used. FINDINGS: Carotid/Vascular Structures: There is a 3 vessel arch. Common carotid arteries bifurcate into internal and external carotid arteries without significant delmar w limiting stenosis. Vertebral arteries are codominant. Internal carotid arteries and vertebral arteries are patent to the skull base. Cervical of [place]: Vertebral basilar system appears normal. Posterior cerebral vasculature is unrema rkable. Internal carotid arteries bifurcate normally into A1 and M1 segments. A2 segments are normal. The anterior communicating artery is patent. The right posterior communicating artery is patent. The left posterior communicating artery is absent. IMPRESSION: 1. No flow-limiting stenosis bilateral carotid bifurcations. 2. Normal [place] [facility] Brandyn Salmeron, , 03/17/2025 4:04 PM
--- NOTE | 2025-03-17 16:08 | XR ---
EXAMINATION TYPE: XR chest 1V portable DATE OF EXAM: 03/17/2025 4:02 PM COMPARISON: 06/15/2010 CLINICAL INDICATION: Male, 84 years old with history of altered mental status, TECHNIQUE: XR chest 1V portable view(s) obtained. FINDINGS: The heart size is enlarged. The pulmonary vasculature is normal. The lungs are clear. IMPRESSION: 1. Cardiomegaly. 2. No acute pulmonary process [facility], , 03/17/2025 4:05 PM
--- NOTE | 2025-03-17 16:25 | CT ---
EXAMINATION TYPE: CODE STROKE: CT brain wo contr DATE OF EXAM: 03/17/2025 3:45 PM COMPARISON: None. CLINICAL INDICATION: Male, 84 years old with history of Neuro deficit, acute, stroke suspected, Code stroke. Aphasia and deficits on rt side. TECHNIQUE: CT of the brain is performed utilizing 3 mm thick sections through the posterior fossa and 3 mm thick sections through the remaining calvarium. Study is performed within 24 hours of arrival to the hospital. Contrast used: mL of , (none if empty) CT DLP: 1219.8 mGycm, Automated exposure control for dose reduction was used. FINDINGS: No abnormal hyperdensity is present to suggest an acute intracranial hemorrhage. No mass lesion is evident. There is hypodensity within the left watershed region. This is indeterminate age. There is some hypodensity within the medial left occipital lobe has a more chronic appearance to isch emic change. Is hypodensity within the left parietal subcortical white matter and centrum semiovale, image 47. Some additional periventricular white matter hypodensity is present likely on the basis of chronic white matter ischemic change. There is some hypodensity within the right alcazar radiata may b e chronic white matter ischemic change Ventricles and sulci are prominent for the patient age. Paranasal sinuses and mastoid air cells within the stxaz-hw-yoih are clear. IMPRESSION: 1. There is triangular hypodense area within the left watershed area may be acute or chronic ischemic change. This is age indeterminate. 2. Additional multiple other white matter hypodensity more likely related to chronic white matter isc hemic changes. 3. Follow-up MRI can be performed as clinically indicated. [facility], , 03/17/2025 4:22 PM
[2025-03-17] MEDS: ASPIRIN 325 MG TAB PO STA (16:52)
[2025-03-17] MEDS: SODIUM CHLORIDE 0.9% 1,000 ML IV SCH (16:54)
--- NOTE | 2025-03-17 17:37 | P.HPIM ---
History of Present Illness H&P Date: 03/17/25 History of Presenting Illness: Patient is a very pleasant 84-year-old male with a past medical history of CAD, valvular heart disease status post open heart surgery for mitral valve repair, hypertension, hyperlipidemia, previous CVA in 2010 resulting in hearing loss and balance/coordination difficulties ambulates with a cane at baseline, and hypothyroidism. He presented to the emergency department with his secondary to concerns of confusion and speech difficulties. She reports he had difficulties getting words out expressing his words but when he did speak the words were clear. Patient's reported last known normal was around 10:30 AM and patient arrived to the hospital at 3:10 PM. Upon arrival to our facility, patient underwent evaluation in the emergency department. Initial NIH is reported to be between 4 and 6. Vital signs upon arrival show blood pressure 125/68, heart rate 68, respiratory rate 18, temp 97.8 F, and SpO2 of 98% on room air. EKG completed showing normal sinus rhythm with a right bundle branch block at 70 bpm with no significant T wave or ST abnormality showing no signs of acute ischemia upon personal review and interpretation. CT head completed showing a triangular hypodense area within the left watershed area may be acute or chronic ischemic change and additional multiple other white matter hypodensity more likely related to chronic white matter ischemic changes. CTA head and neck negative for acute process. Labs completed and reviewed. CBC showing normocytic anemia with hemoglobin of 12.9. Coagulation profile normal findings. BMP showing sodium 136, BUN 23, and blood glucose of 85. Calcium was elevated at 10.3 and total bili elevated at 1.4. Troponin was negative at less than 0.012. Patient currently reports feeling off and stating he is still having some difficulties with memory and finding his words but is currently alert and oriented x 4 with clear speech, denies headache, lightheadedness, or dizziness, denies worsening or new changes of vision or hearing, dysphagia, chest pain, palpitations, shortness of breath, or experiencing any focal numbness/tingling/weakness in his extremities. Review of systems: Pertinent positives and negatives as discussed in HPI, a complete review of systems was performed and all other systems are negative. Physical exam: Vital signs reviewed and stable. General: Nontoxic, no distress and appears stated age. Derm: Skin warm and dry, normal coloration for ethnicity. Head: Atraumatic, normocephalic and symmetric. Eyes: EOM's intact, no lid lag, and anicteric sclera Mouth: no lip lesions, mucus membranes moist Cardiovascular: regular rate and rhythm with normal S1S2, no murmur, positive posterior tibial pulses bilaterally, and cap refill < 2 seconds. Lungs: Respirations even, regular, and unlabored on room air. Lungs CTA bilaterally, no rhonchi, no rales, no wheezing, and no accessory muscle usage. Abdominal: soft, nontender to palpation, no guarding, no appreciable organomegaly Ext: No gross muscle atrophy, no edema, no contractures. Movement and sensati on intact. Patient had difficult time in bilateral lower extremities performing [id number], normal [id number]-jc-[id number]. Neuro: Speech clear, face symmetrical and CN II-XII grossly intact with no noted focal neuro deficits Psych: Alert and oriented to person, place, time, and situation. Appropriate and pleasant affect. Assessment and Plan of Care: Ischemic CVA Expressive aphasia with confusion -Consult neurology -MRI brain without contrast -Echocardiogram -TSH, Lipid profile, and Hgb A1c -NIH stroke scale with neuro checks every 4 hours and as needed -Daily aspirin and atorvastatin. -Resume {BP medication} tomorrow a.m, as we will allow for permissive hypertension over next 24 hours. -PT/OT consult -Swallow evaluation. -Fall precautions and provide pt with assistance as needed Hypercalcemia -Continue gentle IV fluid hydration with 0.9% normal saline at 75 cc/h. Continue to monitor for improvement/resolution with repeat a.m. labs Hypothyroidism -Continue daily medication regimen with levothyroxine 88 mcg daily. Follow-up on TSH. Hypertension Monitor vital signs and resume lisinopril 5 mg nightly and metoprolol 12.5 mg daily starting tomorrow. Hyperlipidemia -Continue atorvastatin 80 mg nightly. Data and imaging reviewed: As stated above in HPI. The patient is admitted with an anticipated greater than 2 midnight stay for evaluation of CVA CODE STATUS: Full code DVT prophylaxis: Lovenox Discussed with:, RN, patient's at bedside, and ED physician Anticipated discharge date: Pending clinical course Anticipated discharge place: Home Patient was seen independently by Nurse Practitioner. This document was prepared using [employer] dictation software. Please allow for errors in booking manager while rare they do occur. Ok Espinoza NP rendered care for this patient independently, reviewed the findings and plan as documented in the note above and agree with plan. I did not physically speak with or examine the patient on this date. Past Medical History Past Medical History: CVA/TIA, GERD/Reflux, Hearing Disorder / Deafness, Hyperlipidemia, Hypertension, Mitral Valve Prolapse (MVP), Osteoarthritis (OA) Additional Past Medical History / Comment(s): CVA 2009 with hearing loss & bi ce problems-uses cane, occasional falls., HX kidney stones, hx mitral valve repair. History of Any Multi-Drug Resistant Organisms: None Reported Past Surgical History: Joint Replacement, Orthopedic Surgery Additional Past Surgical History / Comment(s): mitral valve repair, left arm tendon reattachment , holli total knees. Past Anesthesia/Blood Transfusion Reactions: No Reported Reaction Past Psychological History: No Psychological Hx Reported Smoking Status: Former smoker Past Alcohol Use History: None Reported Past Drug Use History: None Reported - Past Family History Father Family Medical History: Cancer Medications and Allergies Home Medications Medication Instructions Recorded Confirmed Type Aspirin [Adult Low Dose Aspirin EC] 81 mg PO DAILY 07/05/21 03/17/25 History Atorvastatin [Lipitor] 80 mg PO DAILY 07/05/21 03/17/25 History Biotin 10,000 mcg PO DAILY 07/05/21 03/17/25 History Metoprolol Tartrate 12.5 mg PO DAILY 07/05/21 03/17/25 History Sertraline [Zoloft] 50 mg PO HS 07/05/21 03/17/25 History lisinopriL [Zestril] 5 mg PO HS 07/05/21 03/17/25 History Famotidine [Pepcid] 20 mg PO BID 06/23/23 03/17/25 History Levothyroxine Sodium [Synthroid] 88 mcg PO DAILY 06/23/23 03/17/25 History Cyanocobalamin (Vitamin B-12) 1,000 mcg PO DAILY 03/17/25 03/17/25 History [Vitamin B-12] Docusate [Colace] 100 mg PO DAILY 03/17/25 03/17/25 History Zolpidem [Ambien] 5 mg PO HS PRN 03/17/25 03/17/25 History Allergies Allergy/AdvReac Type Severity Reaction Status Date / Time No Known Allergies Allergy Verified 03/17/25 16:00 Physical Exam Vitals: Vital Signs Temp Pulse Resp BP Pulse Ox 03/17/25 16:58 63 16 133/73 94 L 03/17/25 16:54 62 16 134/65 94 L 03/17/25 15:11 97.8 F 68 18 125/68 98 Intake and Output 03/17/25 03/17/25 03/17/25 06:59 14:59 22:59 Other: Weight 77.111 kg Results CBC & Chem 7: 03/17/25 15:26 03/17/25 15:26 Labs: Abnormal Lab Results - Last 24 Hours (Table) 03/17/25 03/17/25 Range/Units 15:26 15:26 RBC 3.96 L (4.40-5.60) 10*6/uL Hgb 12.9 L (13.0-17.0) g/dL Hct 37.5 L (39.6-50.0) % MCH 32.6 H (27.0-32.0) pg Sodium 136 L (137-145) mmol/L BUN 23 H (9-20) mg/dL Calcium 10.3 H (8.4-10.2) mg/dL Total Bilirubin 1.4 H (0.2-1.3) mg/dL
[2025-03-17] MEDS: SERTRALINE 50 MG TAB PO SCH (20:36)
[2025-03-17] MEDS: FAMOTIDINE 20 MG TAB PO SCH (20:36)
[2025-03-17] MEDS: ATORVASTATIN 80 MG TAB PO SCH (20:36)
[2025-03-17] MEDS ORDERED: lisinopriL 5 MG TAB PO SCH (21:00)
[2025-03-18] MEDS: LEVOTHYROXINE 88 MCG TAB PO SCH (06:45)
[2025-03-18] MEDS: METOPROLOL TARTRATE 12.5 MG TAB PO SCH (08:31)
[2025-03-18] MEDS: CYANOCOBALAMIN 500 MCG TAB PO SCH (08:31)
[2025-03-18] MEDS: ASPIRIN 81 MG PO SCH (08:32)
[2025-03-18] MEDS: ENOXAPARIN 40 MG/0.4 ML SYRINGE SQ SCH (08:32)
[2025-03-18] MEDS: DOCUSATE 100 MG CAP PO SCH (08:33)
[2025-03-18 08:45] LABS: HCT 39.9 % (39.6-50.0); HGB 13.5 g/dL (13.0-17.0); MCH 33.3 pg (27.0-32.0); MCHC 33.8 g/dL (32.0-37.0); MCV 98.3 fL (80.0-97.0); Mean Platelet Volume 11.1 fL (9.5-12.2); Platelet Count 183 10*3/uL (140-440); RBC 4.06 10*6/uL (4.40-5.60); RDW 16.2 % (11.5-14.5); WBC 6.11 10*3/uL (4.50-10.00)
[2025-03-18] MEDS ORDERED: ASPIRIN 325 MG TAB PO SCH (09:00)
[2025-03-18 09:03] LABS: ALT 33 U/L (4-49); AST 51 U/L (17-59); African American GFR (CKD) 86 (>60 ml/min/1.73 sqM); Albumin 4.1 g/dL (3.5-5.0); Alkaline Phosphatase 85 U/L (38-126); Anion Gap 7 mmol/L; Blood Urea Nitrogen 22 mg/dL (9-20); Calcium 9.9 mg/dL (8.4-10.2); Carbon Dioxide 26 mmol/L (22-30); Chloride 107 mmol/L (98-107); Glucose 132 mg/dL (74-99); Magnesium 1.9 mg/dL (1.6-2.3); Non-African American GFR(CKD) 74 (>60 ml/min/1.73 sqM); Potassium 4.3 mmol/L (3.5-5.1); Sodium 140 mmol/L (137-145); Total Bilirubin 1.3 mg/dL (0.2-1.3)
[2025-03-18 11:16] LABS: T4, Free (Free Thyroxine) 1.94 ng/dL (0.78-2.19)
--- NOTE | 2025-03-18 12:39 | CA ---
Transthoracic Echo Report Name: Yrn Schaeffer Age: 84 Gender: M : 1940 Exam Date: 03/18/2025 10:50 Exam Location: [facility] Ht (in): 70 Wt (lb): 178 Ordering Physician: Ok Espinoza Attending/Referring Phys: Mortgage Clerk Ashanti Narayanan RDCS Procedure CPT: Indications: CVA Cardiac Hx: MVrepair Technical Quality: Fair Contrast 1: Agitated Saline Total Dose (mL): 7 Contrast 2: Total Dose (mL): MEASUREMENTS (Male / Female) Normal Values 2D ECHO LV Diastolic Diameter PLAX 5.0 cm 4.2 - 5.9 / 3.9 - 5.3 cm LV Systolic Diameter PLAX 3.7 cm IVS Diastolic Thickness 1.2 cm 0.6 - 1.0 / 0.6 - 0.9 cm LVPW Diastolic Thickness 1.3 cm 0.6 - 1.0 / 0.6 - 0.9 cm LV Relative Wall Thickness 0.5 RV Internal Dim ED PLAX 4.2 cm LA Systolic Diameter LX 4.2 cm 3.0 - 4.0 / 2.7 - 3.8 cm LV Diastolic Volume MOD 4C 107.3 cm??? LV Systolic Volume MOD 4C 48.4 cm??? LV Ejection Fraction MOD 4C 54.9 % LV Cardiac Index MOD 4C 1760.6 cm???/min???m??? LV Diastolic Length 4C 9.5 cm LV Systolic Length 4C 8.1 cm LV Diastolic Volume MOD 2C 125.1 cm??? LV Systolic Volume MOD 2C 59.2 cm??? LV Ejection Fraction MOD 2C 52.7 % LV Cardiac Index MOD 2C 1970.8 cm???/min???m??? LV Diastolic Length 2C 9.2 cm LV Systolic Length 2C 7.6 cm LA Volume 97.0 cm??? 18 - 58 / 22 - 52 cm??? LA Volume Index 48.3 cm???/m??? 16 - 28 cm???/m??? M-MODE Aortic Root Diameter MM 3.7 cm AV Cusp Separation MM 2.2 cm DOPPLER AV Peak Velocity 101.6 cm/s AV Peak Gradient 4.1 mmHg MV Area PHT 5.0 cm??? MR Peak Velocity 451.7 cm/s MR Peak Gradient 81.6 mmHg Mitral E Point Velocity 90.1 cm/s Mitral A Point Velocity 96.2 cm/s Mitral E to A Ratio 0.9 MV Deceleration Time 151.6 ms TR Peak Velocity 328.4 cm/s TR Peak Gradient 43.1 mmHg Right Ventricular Systolic Press 43.6 mmHg FINDINGS Left Ventricle Left ventricular ejection fraction is estimated at 50-55 %. Mildly increased septal wall thickness. Normal left ventricular wall motion. Right Ventricle Mild right ventricular dilatation. Mild pulmonary hypertension. Right Atrium mild right atrial dilatation. No right atrial thrombus or mass seen. Negative agitated saline bubble study for right to left shunt. Left Atrium Mildly increased left atrial diameter. Severely increased left atrial volume. Mildly increased left atrial area. No left atrial thrombus or mass present. Mitral Valve Mitral valve thickened. Mild mitral annular calcification. [id number] mitral regurgitation. Aortic Valve Trileaflet aortic valve. No aortic valve stenosis or regurgitation. Tricuspid Valve Structurally normal tricuspid valve. Mild tricuspid regurgitation. Pulmonic Valve Structurally normal pulmonic valve. Trace to mild pulmonic regurgitation. Pericardium No pericardial effusion. Aorta Normal size aortic root and proximal ascending aorta. CONCLUSIONS LVEF 50 to 55% Normal LV size, no obvious regional wall motion abnormality Mild RV dilatation with mild pulmonary hypertension with RVSP 44 mmHg Mild biatrial dilatation Moderate MR, with post repair changes noticed. Mild perforation versus leak from posterior mitral leaflet seen Mild TR Previewed by: Dr Geovanny Thomas (Electronically Signed) Final Date: 18 March 2025 12:38
--- NOTE | 2025-03-18 14:31 | P.PN ---
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 He presented to the emergency department with his joseph calderon to concerns of confusion and speech difficulties. She reports he had difficulties getting words out expressing his words but when he did speak the words were clear. Patient's reported last known normal was around 10:30 AM and patient arrived to the hospital at 3:10 PM. Upon arrival to our facility, patient underwent evaluation in the emergency department. Initial NIH is reported to be between 4 and 6. Vital signs upon arrival show blood pressure 125/68, heart rate 68, respiratory rate 18, temp 97.8 F, and SpO2 of 98% on room air. EKG completed showing normal sinus rhythm with a right bundle branch block at 70 bpm with no significant T wave or ST abnormality showing no signs of acute ischemia upon personal review and interpretation. CT head completed showing a triangular hypodense area within the left watershed area may be acute or chronic ischemic change and additional multiple other white matter hypodensity more likely related to chronic white matter ischemic changes. CTA head and neck negative for acute process. Labs completed and reviewed. CBC showing normocytic anemia with hemoglobin of 12.9. Coagulation profile normal findings. BMP showing sodium 136, BUN 23, and blood glucose of 85. Calcium was elevated at 10.3 and total bili elevated at 1.4. Troponin was negative at less than 0.012. Physical exam: Patient reports continued full resolution of previous reported symptoms of confusion and expressive aphasia. He currently denies having any complaints at this time including headache, lightheadedness, dizziness, chest pain, palpitations, or experiencing any numbness/tingling/weakness/swelling in his extremities. Patient's speech is clear. He is tolerating oral intake well and denies any nausea or vomiting. Patient reports urinating without any difficulties. Patient's at bedside. He is awaiting to be taken down for MRI today at 12:15. Vital signs reviewed and stable. General: Nontoxic, no distress and appears stated age. Derm: Skin warm and dry, normal coloration for ethnicity. Head: Atraumatic, normocephalic and symmetric. Eyes: EOM's intact, no lid lag, and anicteric sclera Mouth: no lip lesions, mucus membranes moist Cardiovascular: regular rate and rhythm with normal S1S2, systolic murmur, positive posterior tibial pulses bilaterally, and cap refill < 2 seconds. Lungs: Respirations even, regular, and unlabored on room air. Lungs CTA bilaterally, no rhonchi, no rales, no wheezing, and no accessory muscle usage. Abdominal: soft, nontender to palpation, no guarding, no appreciable organomegaly Ext: No gross muscle atrophy, no edema, no contractures. Movement and sensation intact. Patient is unsteady upon standing with noted balance difficulties. Unclear if this is this is at his baseline normal as he does have balance and coordination issues from previous stroke.. Neuro: Speech clear, face symmetrical and CN II-XII grossly intact with no noted focal neuro deficits Psych: Alert and oriented to person, place, time, and situation. Appropriate and pleasant affect. Assessment and Plan of Care: Ischemic CVA Expressive aphasia with confusion -Neurology following, discussed plan of care with Dr. Nagel. -MRI brain without contrast -Echocardiogram was completed showing a preserved EF of 50 to 55% with mild right ventricular dilation and mild pulmonary hypertension, mild biatrial dilation, moderate mitral regurgitation with postrepair changes noted and mild perforation versus leak from posterior mitral leaflet seen with mild tricuspid regurgitation -TSH, Lipid profile, and Hgb A1c -NIH stroke scale with neuro checks every 4 hours and as needed -Daily aspirin 81 mg daily and atorvastatin 80 mg nightly -PT/OT consult -Swallow evaluation. -Fall precautions and provide pt with assistance as needed Hypercalcemia -Continue gentle IV fluid hydration with 0.9% normal saline at 75 cc/h. Continue to monitor for improvement/resolution with repeat a.m. labs Hypothyroidism -Continue daily medication regimen with levothyroxine 88 mcg daily. TSH was low at 0.146 with a normal free T4 of 1.94. Hypertension Monitor vital signs and resume lisinopril 5 mg nightly and metoprolol 12.5 mg daily starting tomorrow. Hyperlipidemia -Continue atorvastatin 80 mg nightly. Data and imaging reviewed: Echocardiogram was completed showing a preserved EF of 50 to 55% with mild right ventricular dilation and mild pulmonary hypertension, mild biatrial dilation, moderate mitral regurgitation with postrepair changes noted and mild perforation versus leak from posterior mitral leaflet seen with mild tricuspid regurgitation Vital signs reviewed. Blood pressure 127/71, heart rate 68, respiratory rate 18, temp 98.0 F, and SpO2 of 98% on room air. Labs completed and reviewed. CBC showing macrocytosis with MCV of 98.3 and MCH of 33.3. BMP unremarkable with exception of mild prerenal azotemia with BUN of 22 otherwise normal findings. Blood glucose was 132. Hemoglobin A1c 5.7%. Calcium 9.9. Magnesium 1.9. Liver profile unremarkable. TSH was low at 0.146 with free T4 normal at 1.94. Lipid profile pending. CODE STATUS: Full code DVT prophylaxis: Lovenox Discussed with:, RN, patient's at bedside, and neurologist Anticipated discharge date: Pending clinical course Anticipated discharge place: Home Patient was seen independently by Nurse Practitioner. This document was prepared using [email or web address] dictation software. Please allow for errors in rehabilitation therapy aide while rare they do occur. Ok Espinoza NP rendered care for this patient independently, reviewed the findings and plan as documented in the note above and agree with plan. I did not physically speak with or examine the patient on this date. Objective - Vital Signs Vital signs: Vital Signs Temp 98.0 F 03/18/25 08:26 Pulse 68 03/18/25 08:26 Resp 18 03/18/25 08:26 BP 127/71 03/18/25 08:26 Pulse Ox 98 03/18/25 08:26 FiO2 Intake & Output 03/17/25 03/18/25 03/18/25 18:59 06:59 18:59 Intake Total 540 240 Balance 540 240 Weight 77.111 kg 81.1 kg Intake: Oral 540 240 Other: Voiding Method Toilet Toilet # Voids 1 - Labs CBC & Chem 7: 03/18/25 07:59 03/18/25 07:59 Labs: Abnormal Lab Results - Last 24 Hours (Table) 03/17/25 03/17/25 03/18/25 Range/Units 15:26 15:26 07:59 RBC 3.96 L 4.06 L (4.40-5.60) 10*6/uL Hgb 12.9 L (13.0-17.0) g/dL Hct 37.5 L (39.6-50.0) % MCV 98.3 H (80.0-97.0) fL MCH 32.6 H 33.3 H (27.0-32.0) pg Sodium 136 L (137-145) mmol/L BUN 23 H (9-20) mg/dL Calcium 10.3 H (8.4-10.2) mg/dL Total Bilirubin 1.4 H (0.2-1.3) mg/dL
--- NOTE | 2025-03-18 15:58 | P.CNNES ---
History of Present Illness Consult date: 03/18/25 Requesting physician: Mann Shah Reason for Consult: cva History of Present Illness: This is an 84-year-old gentleman who presents to the emergency department because of speech difficulty. His is at bedside who provides some the history. Yesterday in the early afternoon he was not feeling well. Then he was driving back home from [place] to [place] and since just felt something was off. By the time he got home on his driveway he had difficulty comprehending what is going on. Then he had difficulty using the stick shift and reversing his car in the driveway. And then he was dropping things and his hands both hands. Then immediately he got in the house his saw him and just he did not look right. He could not talk and his speech was impaired. His symptoms lasted for several hours and now it is back to baseline. Denies any further focal weakness. He is on ASA 81mg daily. He use to be on Plavix but was discontinued 2 years ago. He bruises easily. He had one TIA 2007 then large 2009 CVA in which his balance is off and uses cane and also bilateral hearing loss and using hearign aids. Some of the work-up during this hospital visit consisted of: I reviewed the lab work-up. CT head: There is a triangular hypodenisity area within the left watershed area may be acute or chronic ischemic changes. This is age indeterminate. I personally reviewed CT head and I did appreciated the finding reported. CTA head and neck: No flow limiting stenosis bilateral carotid bifurcation. Normal [place] [facility] [place] [facility] [place]. Review of Systems As per HPI. 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 History of Any Multi-Drug Resistant Organisms: None Reported Past Surgical History: Joint Replacement, Orthopedic Surgery Additional Past Surgical History / Comment(s): mitral valve repair, left arm tendon reattachment , holli total knees, R shoulder replacement 2023 Past Anesthesia/Blood Transfusion Reactions: No Reported Reaction Past Psychological History: No Psychological Hx Reported Smoking Status: Former smoker Past Alcohol Use History: None Reported Additional Past Alcohol Use History / Comment(s): quit smoking 22 years ago, hx of 1-1 1/2 ppd. Past Drug Use History: None Reported - Past Family History Father Family Medical History: Cancer Medications and Allergies Home Medications Medication Instructions Recorded Confirmed Type Aspirin [Adult Low Dose Aspirin EC] 81 mg PO DAILY 07/05/21 03/17/25 History Atorvastatin [Lipitor] 80 mg PO DAILY 07/05/21 03/17/25 History Biotin 10,000 mcg PO DAILY 07/05/21 03/17/25 History Metoprolol Tartrate 12.5 mg PO DAILY 07/05/21 03/17/25 History Sertraline [Zoloft] 50 mg PO HS 07/05/21 03/17/25 History lisinopriL [Zestril] 5 mg PO HS 07/05/21 03/17/25 History Famotidine [Pepcid] 20 mg PO BID 06/23/23 03/17/25 History Levothyroxine Sodium [Synthroid] 88 mcg PO DAILY 06/23/23 03/17/25 History Cyanocobalamin (Vitamin B-12) 1,000 mcg PO DAILY 03/17/25 03/17/25 History [Vitamin B-12] Docusate [Colace] 100 mg PO DAILY 03/17/25 03/17/25 History Zolpidem [Ambien] 5 mg PO HS PRN 03/17/25 03/17/25 History Allergies Allergy/AdvReac Type Severity Reaction Status Date / Time No Known Allergies Allergy Verified 03/17/25 16:00 Physical Examination - Vital Signs Vital Signs: Vital Signs Temp Pulse Pulse Resp BP BP Pulse Ox 03/18/25 13:07 52 L 18 03/18/25 11:42 98.1 F 52 L 18 125/68 98 03/18/25 08:26 98.0 F 68 18 127/71 98 03/18/25 04:37 64 18 142/72 97 03/17/25 23:56 67 18 119/68 97 03/17/25 21:56 63 18 143/75 98 03/17/25 21:14 59 L 18 128/64 99 03/17/25 19:15 97.9 F 62 18 142/77 99 03/17/25 19:00 57 L 20 135/84 95 03/17/25 18:00 54 L 16 134/72 98 03/17/25 16:58 63 16 133/73 94 L 03/17/25 16:54 62 16 134/65 94 L Intake and Output 03/18/25 03/18/25 03/18/25 06:59 14:59 22:59 Intake Total 540 480 Balance 540 480 Intake: Oral 540 480 Other: Voiding Method Toilet Toilet # Voids 1 Weight 81.1 kg GENERAL: The patient is lying in bed and is not in acute distress. NEUROLOGICAL: Higher mental function: The patient is awake, alert, oriented to self, place and time. Patient is following commands. No aphasia and no neglect. Cranial nerves: The pupils are round, equal and reactive to light and accommodation. Visual cabral are full to confrontation throughout. Extraocular movement is intact no nystagmus is noted. Facial sensation is normal to touch throughout. The facial strength is normal throughout. Hearing is severely bilaterally to hand rub. Tongue is midline and moved [id number] without any difficulty. No dysarthria is noted. Shoulder shrug is normal bilaterally. Motor: The strength is 5 over 5 throughout. Normal tone and bulk. Cerebellum: Normal finger to nose bilaterally. Sensation: Sensation is normal to touch throughout. Reflexes (right/left): 2+ throughout. Plantars are mute bilaterally. Results - Laboratory Findings CBC and BMP: 03/18/25 07:59 03/18/25 07:59 Abnormal Lab Findings: Abnormal Labs 03/17/25 03/17/25 03/18/25 15:26 15:26 07:59 RBC 3.96 L Hgb 12.9 L Hct 37.5 L MCV MCH 32.6 H Sodium 136 L BUN 23 H 22 H Glucose 132 H Calcium 10.3 H Total Bilirubin 1.4 H TSH 0.146 L 03/18/25 07:59 RBC 4.06 L Hgb Hct MCV 98.3 H MCH 33.3 H Sodium BUN Glucose Calcium Total Bilirubin TSH Assessment and Plan Assessment: This is an 84-year-old gentleman who present emergency department because of feeling off and speech difficulty. Seems that he had a comprehending words. He also had difficulty getting his words out and was dropping things with his hands. Currently he is back to baseline. CT of the head there is a concern of hypodensity over the left hemisphere over the watershed area that is acute to chronic. Probable acute ischemic stroke on the CT of the head. Currently patient is back to baseline History of stroke in 2009 with residual balance issues as well as a bilateral hearing loss. History of TIA in 2007 Hypertension is controlled Plan: Pending MRI of the brain, 2D echo, lipid panel Patient was on home dose of aspirin 81 mg daily and was given aspirin 325 daily. I discontinued his home dose of aspirin and start him on Plavix 75 mg daily. Patient states that he bruises easily and that is the reason why I did not place the patient on dual antiplatelet. He is on Lipitor 80 mg nightly and from neurology perspective can be on 40. Continue neurochecks Cardiac monitoring PT OT and VACCINATOR are consulted Recommend 30-day event monitor. Will defer the rest of the medical management to the primary and other specialist For DVT prophylaxis the patient is on Lovenox Upon discharge recommend the patient to follow-up with a neurologist as an outpatient within 2 to 3 weeks The plan discussed with the patient and his was at bedside. Thank you for the consultation Time with Patient: Greater than 30
--- NOTE | 2025-03-18 16:03 | MR ---
EXAMINATION TYPE: MR brain wo con DATE OF EXAM: 03/18/2025 12:54 PM COMPARISON: None. CLINICAL INDICATION: Male, 84 years old with history of Neuro deficit, acute, stroke suspected, Neuro deficit, acute, stroke suspected TECHNIQUE: Multiplanar, multiecho imaging on a 3.0 Kary magnet is performed through the brain. Stud y is performed within 24 hours of arrival to the hospital.Multiplanar, multiecho imaging on a 3.0 [place] magnet is performed through the knee. IV Contrast: mL (None, if empty) FINDINGS: The craniovertebral junction is normal. The pituitary is normal. Diffusion-weighted imaging is performed. There is a small amount of hyperintensity along the cortex of the left posterior parietal region. Some acute ischemic change may be present. Series 303 image 14 4 Some subtle hyperintensity may be within the right occipital lobe, series 303 image 160 Chronic appearing periventricular and subcortical white matter changes are present bilaterally. Findi ngs can be compatible with chronic white matter ischemic change. Ventricles and sulci are prominent for the patient age. IMPRESSION: 1. Hyperintense cortex left posterior parietal region may be acute ischemic change. 2. Subcortical white matter hyperintensity within the right occipital lobe could be a small acute isc hemic area. 3. There is additional patchy periventricular and subcortical white matter changes on inversion recov alisa compatible with chronic white matter ischemic changes. [facility], , 03/18/2025 4:01 PM
[2025-03-18] MEDS: CLOPIDOGREL 75 MG TAB PO SCH (16:24)
[2025-03-18] MEDS: lisinopriL 5 MG TAB PO SCH (19:56)
[2025-03-19 00:28] LABS: Chol/HDL Ratio 1.98 Ratio; LDL Cholesterol,Calculated 53.4 mg/dL (0.0-131.0)
--- NOTE | 2025-03-19 11:35 | P.PN ---
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 He presented to the emergency department with his joseph calderon to concerns of confusion and speech difficulties. She reports he had difficulties getting words out expressing his words but when he did speak the words were clear. Patient's reported last known normal was around 10:30 AM and patient arrived to the hospital at 3:10 PM. Upon arrival to our facility, patient underwent evaluation in the emergency department. Initial NIH is reported to be between 4 and 6. Vital signs upon arrival show blood pressure 125/68, heart rate 68, respiratory rate 18, temp 97.8 F, and SpO2 of 98% on room air. EKG completed showing normal sinus rhythm with a right bundle branch block at 70 bpm with no significant T wave or ST abnormality showing no signs of acute ischemia upon personal review and interpretation. CT head completed showing a triangular hypodense area within the left watershed area may be acute or chronic ischemic change and additional multiple other white matter hypodensity more likely related to chronic white matter ischemic changes. CTA head and neck negative for acute process. Labs completed and reviewed. CBC showing normocytic anemia with hemoglobin of 12.9. Coagulation profile normal findings. BMP showing sodium 136, BUN 23, and blood glucose of 85. Calcium was elevated at 10.3 and total bili elevated at 1.4. Troponin was negative at less than 0.012. MRI brain showing hypointense cortex left posterior parietal region may be acute ischemic changes, subcortical white matter hypertensive he within the right occipital lobe could be a small acute ischemic area and additional patchy periventricular and subcortical white matter changes on inversion recovery compatible with chronic white matter ischemic changes. Echocardiogram was completed showing a preserved EF of 50 to 55% with mild right ventricular dilation and mild pulmonary hypertension, mild biatrial dilation, moderate mitral regurgitation with postrepair changes noted and mild perforation versus leak from posterior mitral leaflet seen with mild tricuspid regurgitation. Physical exam: Patient seen and fully evaluated at bedside this morning. He was sitting up in the chair visiting with his at bedside. Patient continues to deny any further or recurrent difficulties with speech or experiencing any new numbness/tingling/weakness in his extremities. He reports feeling great this morning. Patient and his were updated on MRI findings and neurology recommendations for event monitor on discharge. All questions answered at this time. Vital signs reviewed and stable. General: Nontoxic, no distress and appears stated age. Derm: Skin warm and dry, normal coloration for ethnicity. Head: Atraumatic, normocephalic and symmetric. Eyes: EOM's intact, no lid lag, and anicteric sclera Mouth: no lip lesions, mucus membranes moist Cardiovascular: regular rate and rhythm with normal S1S2, systolic murmur, positive posterior tibial pulses bilaterally, and cap refill < 2 seconds. Lungs: Respirations even, regular, and unlabored on room air. Lungs CTA bilaterally, no rhonchi, no rales, no wheezing, and no accessory muscle usage. Abdominal: soft, nontender to palpation, no guarding, no appreciable organomegaly Ext: No gross muscle atrophy, no edema, no contractures. Movement and sensation intact. Patient is unsteady upon standing with noted balance difficulties. Unclear if this is this is at his baseline normal as he does have balance and coordination issues from previous stroke.. Neuro: Speech clear, face symmetrical and CN II-XII grossly intact with no noted focal neuro deficits Psych: Alert and oriented to person, place, time, and situation. Appropriate and pleasant affect. Assessment and Plan of Care: Acute ischemic CVA, left posterior parietal region and right occipital lobe. Concerns for embolic CVA -Neurology following, discussed plan of care with Dr. Nagel, recommending event monitor on discharge. -MRI brain showing hypointense cortex left posterior parietal region may be acute ischemic changes, subcortical white matter hypertensive he within the right occipital lobe could be a small acute ischemic area and additional patchy periventricular and subcortical white matter changes on inversion recovery compatible with chronic white matter ischemic changes. -Echocardiogram was completed showing a preserved EF of 50 to 55% with mild right ventricular dilation and mild pulmonary hypertension, mild biatrial dilation, moderate mitral regurgitation with postrepair changes noted and mild perforation versus leak from posterior mitral leaflet seen with mild tricuspid regurgitation. -Cardiology consulted for evaluation for RENAE -TSH 0.146 with normal free T4 of 1.94. Lipid profile unremarkable and Hgb A1c 5.7% -Continue NIH stroke scale with neuro checks every 4 hours and as needed -Daily aspirin 81 mg daily, Plavix 75 mg daily and atorvastatin 80 mg nightly -PT/OT consult -Swallow evaluation. -Fall precautions and provide pt with assistance as needed Hypercalcemia -Continue gentle IV fluid hydration with 0.9% normal saline at 75 cc/h. Continue to monitor for improvement/resolution with repeat a.m. labs Hypothyroidism -Continue daily medication regimen with levothyroxine 88 mcg daily. TSH was low at 0.146 with a normal free T4 of 1.94. Hypertension Monitor vital signs and resume lisinopril 5 mg nightly and metoprolol 12.5 mg daily starting tomorrow. Hyperlipidemia -Continue atorvastatin 80 mg nightly. Data and imaging reviewed: MRI brain showing hypointense cortex left posterior parietal region may be acute ischemic changes, subcortical white matter hypertensive he within the right occipital lobe could be a small acute ischemic area and additional patchy periventricular and subcortical white matter changes on inversion recovery c ompatible with chronic white matter ischemic changes. Vital signs reviewed. Blood pressure 118/76, heart rate 66, respiratory rate 18, temp 90.3 F, and SpO2 of 96% on room air. Labs completed and reviewed. Lipid profile unremarkable. Hemoglobin A1c 5.7%. CODE STATUS: Full code DVT prophylaxis: Lovenox Discussed with:, RN, patient's at bedside, and neurologist Anticipated discharge date: Pending clinical course Anticipated discharge place: Home Patient was seen independently by Nurse Practitioner. This document was prepared using [employer] dictation software. Please allow for errors in agricultural pilot while rare they do occur. Ok Espinoza NP rendered care for this patient independently, reviewed the findings and plan as documented in the note above and agree with plan. I did n ot physically speak with or examine the patient on this date. Objective - Vital Signs Vital signs: Vital Signs Temp 98.3 F 03/19/25 07:57 Pulse 66 03/19/25 07:58 Resp 18 03/19/25 07:58 BP 118/76 03/19/25 07:57 Pulse Ox 96 03/19/25 07:57 FiO2 Intake & Output 03/18/25 03/19/25 03/19/25 18:59 06:59 18:59 Intake Total 480 480 Balance 480 480 Weight 80.1 kg Intake: Oral 480 480 Other: Voiding Method Toilet Toilet Toilet # Voids 5 1 1 # Bowel Movements 1 - Labs CBC & Chem 7: 03/18/25 07:59 03/18/25 07:59 Labs: Abnormal Lab Results - Last 24 Hours (Table) 03/18/25 Range/Units 07:59 BUN 22 H (9-20) mg/dL Glucose 132 H (74-99) mg/dL HDL Cholesterol 68.60 H (40.00-60.00) mg/dL TSH 0.146 L (0.465-4.680) mIU/L
--- NOTE | 2025-03-19 11:37 | P.PN ---
Subjective Progress Note Date: 03/19/25 I am following-up with the patient and he states he is doing well. No new neurological issues. 2D echo there is concern for Mitral leak. Objective - Vital Signs Vital signs: Vital Signs Temp 97.8 F 03/19/25 11:08 Pulse 52 L 03/19/25 11:08 Resp 18 03/19/25 11:08 BP 111/65 03/19/25 11:08 Pulse Ox 99 03/19/25 11:08 FiO2 Intake & Output 03/18/25 03/19/25 03/19/25 18:59 06:59 18:59 Intake Total 480 480 Balance 480 480 Weight 80.1 kg Intake: Oral 480 480 Other: Voiding Method Toilet Toilet Toilet # Voids 5 1 1 # Bowel Movements 1 - Exam GENERAL: The patient is sitting in a recliner chair and is not in acute distress. NEUROLOGICAL: Higher mental function: The patient is awake, alert, oriented to self, place and time. Patient is following commands. No aphasia and no neglect. Cranial nerves: The pupils are round, equal and reactive to light and accommodation. Visual cabral are full to confrontation throughout. Extraocular movement is intact no nystagmus is noted. Facial sensation is normal to touch throughout. The facial strength is normal throughout. Hearing is severely bilaterally to hand rub. Tongue is midline and moved [id number] without any difficulty. No dysarthria is noted. Shoulder shrug is normal bilaterally. Motor: The strength is 5 over 5 throughout. Normal tone and bulk. Cerebellum: Normal finger to nose bilaterally. Sensation: Sensation is normal to touch throughout. Reflexes (right/left): 2+ throughout. Plantars are mute bilaterally. Some of the work-up during this hospital visit consisted of: Lipid panel: TG 70, cholestrol 136, LDL 53 and HDL 68 I reviewed the lab work-up. CT head: There is a triangular hypodenisity area within the left watershed area may be acute or chronic ischemic changes. This is age indeterminate. I personally reviewed CT head and I did appreciated the finding reported. CTA head and neck: No flow limiting stenosis bilateral carotid bifurcation. Normal [place]. MRI Brain: Hyperintense cortex left posterior parietal region maybe acute ischemic change. I personally reviewed MRI and agree there is stroke over the left parietal region and seems more cortical. There is slight hyperintense region over the left parietal but without ADC correlation. 2D echo: EF 55%. Moderate MR with post repair changes noticed. Mild performation vs leak from posterior mitral leaflet seen. - Labs CBC & Chem 7: 03/18/25 07:59 03/18/25 07:59 Labs: Abnormal Lab Results - Last 24 Hours (Table) 03/18/25 Range/Units 07:59 HDL Cholesterol 68.60 H (40.00-60.00) mg/dL Assessment and Plan Assessment: This is an 84-year-old gentleman who present emergency department because of feeling off and speech difficulty. Seems that he had a comprehending words. He also had difficulty getting his words out and was dropping things with his hands. Currently he is back to baseline. CT of the head there is a concern of hypodensity over the left hemisphere over the watershed area that is acute to chronic. Acute ischemic stroke (stroke over the left parietal cortical region small in size on MRI Brain). Etiology of stroke seems especially with prior stroke is concerning of cardioembolic. Mild performation vs leak from posterior mitral leaflet seen on recent 2D echo History of TIA in 2007 History of stroke in 2009 and with residual balance issues and hearing loss History of mitral valve repair Hypertension is controlled Plan: Patient was on home dose of aspirin 81 mg daily and was given aspirin 325 daily. I discontinued his home dose of aspirin and started him on Plavix 75 mg daily. Patient states that he bruises easily and that is the reason why I did not place the patient on dual antiplatelet. He is on Lipitor 80 mg nightly and from neurology perspective can be on 40. Continue neurochecks Cardiac monitoring PT OT and WAD COMPRESSOR OPERATOR ADJUSTER are consulted Recommend 30-day event monitor. Consider RENAE. Cardiology is consulted. Will defer the rest of the medical management to the primary and other spe cialist For DVT prophylaxis the patient is on Lovenox Upon discharge recommend the patient to follow-up with a neurologist as an outpatient within 2 to 3 weeks The plan is discussed with the patient and primary team N.P. Time with Patient: Less than 30
[2025-03-19] MEDS ORDERED: fentaNYL (PF) 50 MCG/ML 2 ML AMP IVP PRN (13:19)
[2025-03-19] MEDS ORDERED: BENZOCAINE SPRAY 1 EACH MM PRN (13:19)
[2025-03-19] MEDS ORDERED: MIDAZOLAM 2 MG/2 ML VIAL IV PRN (13:19)
--- NOTE | 2025-03-19 13:19 | P.CRDCN ---
History of Present Illness Consult date: 03/19/25 History of present illness: HISTORY OF PRESENTING ILLNESS: Patient presented to the hospital because of feeling off and speech difficulty. He is having word finding difficulty. He was admitted with concerns of possible CVA. Initial workup showed acute ischemic stroke over the left parietal cortical region small in size on brain MRI. Neurology feels that cardioembolic source. Prior history of TIA in 2007 and history of CVA in 2010 with residual balance and hearing problem. He also has history of valvular heart disease with open heart mitral valve repair done in the past. 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 His also noticed some speech impairment and word finding difficulty which got them concerned and they came to the ER. Cardiology was consulted for performing RENAE Pertinent labs Hb 12, BUN 23 creatinine 0.9, A1c 5.7, LDL 58, TG 70, TSH 0.1, which is low T4 normal at 1.9, Echo EF 50-55, mild RV dilatation RVSP 44 mmHg, moderate MR, postrepair changes noticed mitral valve with mild perforation versus leak in posterior mitral leaflet seen, mild TR MRI brain shows hyperintense cortex left posterior parietal region concern of possible acute CVA. Subcortical white matter hyperintensity in right occipital lobe suggestive of possible acute ischemic area some chronic white matter ischemic changes. CT angiogram neck shows normal [place], no flow-limiting stenosis in bilateral carotids REVIEW OF SYSTEMS: 14 point review of system is negative except what is mentioned above in HPI. PHYSICAL EXAMINATION: Neck: Brisk carotid upstroke, no jugular venous distention. Lungs: Clear to auscultation. Heart: Regular rate and rhythm, S1-S2, mild systolic murmur audible. Abdomen: Soft nontender, positive bowel sounds. Extremities: No edema, intact distal pulses. Neuro: Alert, oritented, some slurred speech with word finding difficulty detailed neuro exam was not performed. ASSESSMENT: # Acute CVA involving left posterior parietal lobe # History of TIA in 2007 and CVA in 2010 causing balancing issue # History of mitral valve repair surgical # Essential hypertension PLAN: Start aspirin 81 mg, continue Lipitor. Apparently he had a CVA while taking aspirin therefore Plavix was added. Continue lisinopril 5 mg daily Discontinue metoprolol Readdress dose of levothyroxine outpatient. Consider reducing it to 75 mcg Agree with performing RENAE tomorrow Geovanny Thomas MD, FAC, RPVI Thank you for allowing [facility] to participate in this patient's care. Feel free to reach out in case of any followup questions. 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 History of Any Multi-Drug Resistant Organisms: None Reported Past Surgical History: Joint Replacement, Orthopedic Surgery Additional Past Surgical History / Comment(s): mitral valve repair, left arm tendon reattachment , holli total knees, R shoulder replacement 2023 Past Anesthesia/Blood Transfusion Reactions: No Reported Reaction Past Psychological History: No Psychological Hx Reported Smoking Status: Former smoker Past Alcohol Use History: None Reported Additional Past Alcohol Use History / Comment(s): quit smoking 22 years ago, hx of 1-1 1/2 ppd. Past Drug Use History: None Reported - Past Family History Father Family Medical History: Cancer Medications and Allergies Home Medications Medication Instructions Recorded Confirmed Type Aspirin [Adult Low Dose Aspirin EC] 81 mg PO DAILY 07/05/21 03/17/25 History Atorvastatin [Lipitor] 80 mg PO DAILY 07/05/21 03/17/25 History Biotin 10,000 mcg PO DAILY 07/05/21 03/17/25 History Metoprolol Tartrate 12.5 mg PO DAILY 07/05/21 03/17/25 History Sertraline [Zoloft] 50 mg PO HS 07/05/21 03/17/25 History lisinopriL [Zestril] 5 mg PO HS 07/05/21 03/17/25 History Famotidine [Pepcid] 20 mg PO BID 06/23/23 03/17/25 History Levothyroxine Sodium [Synthroid] 88 mcg PO DAILY 06/23/23 03/17/25 History Cyanocobalamin (Vitamin B-12) 1,000 mcg PO DAILY 03/17/25 03/17/25 History [Vitamin B-12] Docusate [Colace] 100 mg PO DAILY 03/17/25 03/17/25 History Zolpidem [Ambien] 5 mg PO HS PRN 03/17/25 03/17/25 History Allergies Allergy/AdvReac Type Severity Reaction Status Date / Time No Known Allergies Allergy Verified 03/17/25 16:00 Physical Exam Vitals: Vital Signs Temp Pulse Resp BP Pulse Ox 03/19/25 11:08 97.8 F 52 L 18 111/65 99 03/19/25 07:58 66 18 03/19/25 07:57 98.3 F 66 18 118/76 96 03/19/25 04:26 58 L 18 125/71 98 03/18/25 23:33 59 L 18 116/56 97 03/18/25 19:58 98.3 F 60 18 136/73 99 03/18/25 16:24 97.9 F 58 L 18 128/71 98 Intake and Output 03/18/25 03/19/25 03/19/25 22:59 06:59 14:59 Intake Total 480 Balance 480 Intake: Oral 480 Other: Voiding Method Toilet Toilet Toilet # Voids 5 1 1 # Bowel Movements 1 Weight 80.1 kg Results 03/18/25 07:59 03/18/25 07:59 Lipids 03/18/25 Range/Units 07:59 Triglycerides 70.00 (0.00-149.00) mg/dL Cholesterol 136.00 (0.00-200.00) mg/dL HDL Cholesterol 68.60 H (40.00-60.00) mg/dL Cholesterol/HDL Ratio 1.98 Ratio Current Medications Generic Name Dose Route Start Last Admin Trade Name Freq PRN Reason Stop Dose Admin Aspirin 81 mg 03/19/25 13:00 Aspirin 81 Mg PO DAILY [facility] Atorvastatin Calcium 80 mg 03/17/25 21:00 03/18/25 19:56 Atorvastatin 80 Mg Tab PO 80 mg HS [facility] Administration Clopidogrel Bisulfate 75 mg 03/18/25 16:00 03/19/25 08:01 Clopidogrel 75 Mg Tab PO 75 mg DAILY [facility] Administration Cyanocobalamin 1,000 mcg 03/18/25 09:00 03/19/25 08:02 Cyanocobalamin 500 Mcg Tab PO 1,000 mcg DAILY [facility] Administration Docusate Sodium 100 mg 03/18/25 09:00 03/19/25 08:02 Docusate 100 Mg Cap PO 100 mg DAILY [facility] Administration Enoxaparin Sodium 40 mg 03/18/25 09:00 03/19/25 08:02 Enoxaparin 40 Mg/0.4 Ml Syringe SQ 40 mg DAILY [facility] Administration Famotidine 20 mg 03/17/25 21:00 03/19/25 08:02 Famotidine 20 Mg Tab PO 20 mg BID [facility] Administration Levothyroxine Sodium 88 mcg 03/18/25 06:30 03/19/25 06:28 Levothyroxine 88 Mcg Tab PO 88 mcg DAILY@0630 [facility] Administration Lisinopril 5 mg 03/18/25 21:00 03/18/25 19:56 Lisinopril 5 Mg Tab PO 5 mg HS [facility] Administration Sertraline HCl 50 mg 03/17/25 21:00 03/18/25 19:56 Sertraline 50 Mg Tab PO 50 mg HS [facility] Administration Intake and Output 03/18/25 03/19/25 03/19/25 22:59 06:59 14:59 Intake Total 480 Balance 480 Intake: Oral 480 Other: Voiding Method Toilet Toilet Toilet # Voids 5 1 1 # Bowel Movements 1 Weight 80.1 kg 03/18/25 07:59 03/18/25 07:59
[2025-03-19] MEDS: ASPIRIN 81 MG PO SCH (14:34)
[2025-03-20] MEDS: SODIUM CHLORIDE 0.9% 500 ML 500 ML IV SCH (09:59)
[2025-03-20] MEDS: IV FLUID CONTINUATION 1,000 ML IV ONE (12:41)
[2025-03-20] MEDS: BENZOCAINE SPRAY 1 EACH MM ONE ×2 (13:02→13:07)
[2025-03-20] MEDS: fentaNYL (PF) 50 MCG/ML 2 ML AMP IVP ONE (13:08)
[2025-03-20] MEDS: MIDAZOLAM 2 MG/2 ML VIAL IVP ONE (13:08)
--- NOTE | 2025-03-20 13:43 | P.TEE ---
Date of Procedure: 03/20/25 Description of Procedure(s): Procedure performed: 1. Transesophageal Echocardiogram with color flow doppler, pulsed wave doppler and continuous wave doppler, (CPT 51095, +[id number], +[id number]) 2. Moderate conscious sedation. Sedation time 10 mins. (CPT 85105) 3. Bubble study Indications: CVA, previous mitral valve repair with current regurgitation Consent: I have discussed the risks, benefits and alternative therapies for the above-mentioned procedure. The patient has indicated understanding and acceptan ce of the risks of the procedure. Signed consent was obtained and was placed in the paper chart. Procedural Steps: Timeout was performed in usual fashion. Patient's heart rate, blood pressure, oxygen saturation and ECG were monitored. Benzocaine was sprayed liberally in the back of the throat. Bite block was placed between the jaw. 2 mg of Versed and [50] mcg of Fentanyl were administered intravenously. After achieving appropriate moderate conscious sedation, RENAE probe was advanced without difficulty and without any immediate complications to the esophagus. RENAE study was performed with color flow doppler, pulsed wave doppler and continuous wave doppler. The probe was then removed. Patient tolerated the procedure well. Patient was transferred to the post procedure area in stable and sati sfactory condition. Throughout the procedure patient's heart rate, blood pressure, oxygen saturation and ECG were monitored. Total sedation time 10 mins. Complications: none FINDINGS Left Atrium: Moderate left atrial dilatation. No evidence of mass or thrombus seen Left Atrial Appendage: No evidence of thrombus or mass seen in [place] Inter atrial septum: Intact inter-atrial septum with no evidence of atrial septal defect or patent foramen ovale. No evidence of [id number] intracardiac shunting on bubble study Left Ventricle: Normal global LV size and systolic function Right Atrium: Moderate right atrial dilatation. Right Ventricle: Mild RV dilatation. Aortic Valve: Structurally normal Trileaflet, no significant calcification. No significant stenosis or regurgitation on color doppler assessment. Mitral Valve: Postoperative changes noticed in mitral valve especially posterior mitral leaflet. There is a small leak noticed in the posterior mitral leaflet with mild regurgitation. This apparently is between P2 and P3 competent. [place] mitral regurgitation Pulmonic Valve: No significant regurgitation Tricuspid Valve: Mild tricuspid regurgitation Ascending aorta, Aortic root and Aortic arch: Normal size aortic root 3.8 cm and ascending aorta 3.8 cm. Mild intimal thickening and mild small calcific plaque. Descending aorta: Mild intimal thickening and mild calcific plaque noticed No pericardial effusion CONCLUSION: No evidence of [id number] intracardiac shunting on bubble study Moderate biatrial dilatation with evidence of thrombus in [place] or left atrial appendage Mild mitral regurgitation. Postoperative changes noticed in posterior mitral leaflet with mild leak between P2 and P3 competent. Mild tricuspid regurgitation Normal global LV size and systolic function Recommendation No surgical intervention needed. Continue medical management. Third event monitor to rule out any subclinical atrial fibrillation Geovanny Thomas MD, RPVI, FACC Thank you for allowing [facility] to participate in this patient's care. Feel free to reach out in case of any followup questions.
--- NOTE | 2025-03-20 13:45 | P.PN ---
Subjective HISTORY OF PRESENT ILLNESS: This is an 84-year-old female who follows in the office with Dr. Norton. Patient has a history of CAD, mitral valve repair, PFO closure, hypertension, hyperlipidemia, and occipital CVA. Patient examined this morning. He is sitting up in the chair. Patient currently denies chest pain or pressure. He denies shortness of breath. Denies dizziness or lightheadedness. He states his speech has returned back to normal. Vital signs are stable. PHYSICAL EXAM: VITAL SIGNS: Reviewed. GENERAL: Well-developed in no acute distress. NECK: Supple. No JVD or thyromegaly LUNGS: Respirations even and unlabored. Lungs essentially clear to auscultation bilaterally. HEART: Regular rate and rhythm. S1 and S2 heard. EXTREMITIES: Normal range of motion. No clubbing or cyanosis. Peripheral pulses intact. No lower extremity edema ASSESSMENT: Acute CVA History of CVA, 2009 History of TIA, 2007 Coronary artery disease with previous CABG, 2005 History of mitral valve repair with ring annuloplasty, 2005 History of PFO closure, 2005 Hypertension Hyperlipidemia PLAN: Continue current cardiac medications including aspirin, Lipitor, Plavix, and lisinopril Metoprolol discontinued secondary to bradycardia Patient scheduled for RENAE today with Dr. Thomas Further recommendations pending patient course Patient to follow-up postdischarge in the office with Dr. Norton Nurse practitioner note has been reviewed by physician. Signing provider agrees with the documented findings, assessment, and plan of care documented by [facility] as a scribe. Objective - Vital Signs Vital signs: Vital Signs Temp 97.6 F 03/20/25 11:23 Pulse 63 03/20/25 12:50 Resp 13 03/20/25 12:50 BP 119/66 03/20/25 12:50 Pulse Ox 98 03/20/25 12:50 FiO2 Intake & Output 03/19/25 03/20/25 03/20/25 18:59 06:59 18:59 Intake Total 598 200 Balance 598 200 Weight 80 kg Intake: IV 200 Oral 598 Other: Voiding Method Toilet Toilet Toilet # Voids 2 1 - Labs CBC & Chem 7: 03/18/25 07:59 03/18/25 07:59
--- NOTE | 2025-03-20 14:15 | P.PN ---
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 He presented to the emergency department with his joseph calderon to concerns of confusion and speech difficulties. She reports he had difficulties getting words out expressing his words but when he did speak the words were clear. Patient's reported last known normal was around 10:30 AM and patient arrived to the hospital at 3:10 PM. Upon arrival to our facility, patient underwent evaluation in the emergency department. Initial NIH is reported to be between 4 and 6. Vital signs upon arrival show blood pressure 125/68, heart rate 68, respiratory rate 18, temp 97.8 F, and SpO2 of 98% on room air. EKG completed showing normal sinus rhythm with a right bundle branch block at 70 bpm with no significant T wave or ST abnormality showing no signs of acute ischemia upon personal review and interpretation. CT head completed showing a triangular hypodense area within the left watershed area may be acute or chronic ischemic change and additional multiple other white matter hypodensity more likely related to chronic white matter ischemic changes. CTA head and neck negative for acute process. Labs completed and reviewed. CBC showing normocytic anemia with hemoglobin of 12.9. Coagulation profile normal findings. BMP showing sodium 136, BUN 23, and blood glucose of 85. Calcium was elevated at 10.3 and total bili elevated at 1.4. Troponin was negative at less than 0.012. MRI brain showing hypointense cortex left posterior parietal region may be acute ischemic changes, subcortical white matter hypertensive he within the right occipital lobe could be a small acute ischemic area and additional patchy periventricular and subcortical white matter changes on inversion recovery compatible with chronic white matter ischemic changes. Echocardiogram was completed showing a preserved EF of 50 to 55% with mild right ventricular dilation and mild pulmonary hypertension, mild biatrial dilation, moderate mitral regurgitation with postrepair changes noted and mild perforation versus leak from posterior mitral leaflet seen with mild tricuspid regurgitation. Physical exam: Patient seen and fully evaluated at bedside this morning. He was sitting up in the chair visiting with his at bedside. He is currently awaiting to be taken down for RENAE. Patient continues to deny having any recurrent strokelike symptoms and denies any other complaints or needs at this time. Vital signs reviewed and stable. General: Nontoxic, no distress and appears stated age. Derm: Skin warm and dry, normal coloration for ethnicity. Head: Atraumatic, normocephalic and symmetric. Eyes: EOM's intact, no lid lag, and anicteric sclera Mouth: no lip lesions, mucus membranes moist Cardiovascular: regular rate and rhythm with normal S1S2, systolic murmur, positive posterior tibial pulses bilaterally, and cap refill < 2 seconds. Lungs: Respirations even, regular, and unlabored on room air. Lungs CTA bilaterally, no rhonchi, no rales, no wheezing, and no accessory muscle usage. Abdominal: soft, nontender to palpation, no guarding, no appreciable organomegaly Ext: No gross muscle atrophy, no edema, no contractures. Movement and sensati on intact. Patient is unsteady upon standing with noted balance difficulties. Unclear if this is this is at his baseline normal as he does have balance and coordination issues from previous stroke. Neuro: Speech clear, face symmetrical and CN II-XII grossly intact with no noted focal neuro deficits Psych: Alert and oriented to person, place, time, and situation. Appropriate and pleasant affect. Assessment and Plan of Care: Acute ischemic CVA, left posterior parietal region and right occipital lobe. Concerns for embolic CVA -Neurology following, discussed plan of care with Dr. Nagel, recommending event monitor on discharge. -Cardiology following, planning to take patient for RENAE later today. -TSH 0.146 with normal free T4 of 1.94. Lipid profile unremarkable and Hgb A1c 5.7% -Continue NIH stroke scale with neuro checks every 4 hours and as needed -Daily aspirin 81 mg daily, Plavix 75 mg daily and atorvastatin 80 mg nightly -PT/OT following. -Swallow evaluation. -Fall precautions and provide pt with assistance as needed Hypercalcemia -Resolved after IV fluid hydration. Hypothyroidism -Continue daily medication regimen with levothyroxine 88 mcg daily. TSH was low at 0.146 with a normal free T4 of 1.94. Hypertension Monitor vital signs and resume lisinopril 5 mg nightly and metoprolol 12.5 mg daily starting tomorrow. Hyperlipidemia -Continue atorvastatin 80 mg nightly. Data and imaging reviewed: Vital signs reviewed. Blood pressure 115/70, heart rate 97, respiratory rate 20, temp 97.6 F, and SpO2 of 97% on room air CODE STATUS: Full code DVT prophylaxis: Lovenox Discussed with:, RN, patient's at bedside, cardiology [employer] [facility] and neurologist Anticipated discharge date: Pending clinical course Anticipated discharge place: Home Patient was seen independently by Nurse Practitioner. This document was prepared using [employer] dictation software. Please allow for errors in ranch cook while rare they do occur. Ok Espinoza NP rendered care for this patient independently, reviewed the findings and plan as documented in the note above and agree with plan. I did not physically speak with or examine the patient on this date. Objective - Vital Signs Vital signs: Vital Signs Temp 97.5 F L 03/20/25 08:00 Pulse 65 03/20/25 08:00 Resp 19 03/20/25 08:00 BP 133/71 03/20/25 08:00 Pulse Ox 96 03/20/25 08:00 FiO2 Intake & Output 03/19/25 03/20/25 03/20/25 18:59 06:59 18:59 Intake Total 598 Balance 598 Weight 80 kg Intake: Oral 598 Other: Voiding Method Toilet Toilet Toilet # Voids 2 - Labs CBC & Chem 7: 03/18/25 07:59 03/18/25 07:59
--- NOTE | 2025-03-20 16:53 | P.DS ---
Providers Date of admission: 03/17/25 16:23 Expected date of discharge: 03/20/25 Attending physician: Kayley Perez MD Consults: 03/17/25 16:23 Consult Physician Urgent Consulting Provider: Vargas Nagel Consult Reason/Comments: CVA Do you want consulting provider notified?: Yes 03/19/25 08:59 Consult Physician Routine Consulting Provider: Geovanny Thomas Consult Reason/Comments: RENAE Do you want consulting provider notified?: Yes Primary care physician: Ankur Kim Hospital Course: Discharge Diagnosis: Acute ischemic CVA, left posterior parietal region and right occipital lobe. Concerns for embolic CVA. Patient underwent a RENAE and personally verified RENAE report with milieu counselor, Dr. Thomas stating there is no evidence of thrombus in KELSEY or left atrial appendage stating no surgical intervention needed and continue with medical management. Neurology recommending discharge home on Plavix indefinitely. Cardiology starting patient back on aspirin as well. Patient to continue with statin 80 mg nightly and dual antiplatelet therapy with aspirin and Plavix for 21 days and then instructed to discontinue aspirin and remain on Plavix indefinitely. Patient discharged home with 30-day event monitor. To follow-up with PCP in 1 to 2 days, neurologist in 1 to 2 weeks, and milieu counselor in 1 to 2 weeks. Hypercalcemia. Resolved after IV fluid hydration. Hypothyroidism. Continue daily medication regimen with levothyroxine 88 mcg daily. TSH was low at 0.146 with a normal free T4 of 1.94 (patient takes biotin supplements, recommend holding biotin supplements for 1 week and repeat TSH in 6 weeks) Hypertension. Monitor vital signs and resume lisinopril 5 mg nightly. Metoprolol was discontinued secondary to bradycardia. Hyperlipidemia. Continue atorvastatin 80 mg nightly. 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 He presented to the emergency department with his secondary to concerns of confusion and speech difficulties. She reports he had difficulties getting words out expressing his words but when he did speak the words were clear. Patient's reported last known normal was around 10:30 AM and patient arrived to the hospital at 3:10 PM. Upon arrival to our facility, patient underwent evaluation in the emergency department. Initial NIH is reported to be between 4 and 6. Vital signs upon arrival show blood pressure 125/68, heart rate 68, respiratory rate 18, temp 97.8 F, and SpO2 of 98% on room air. EKG completed showing normal sinus rhythm with a right bundle branch block at 70 bpm with no significant T wave or ST abnormality showing no signs of acute ischemia upon personal review and interpretation. CT head completed showing a triangular hypodense area within the left watershed area may be acute or chronic ischemic change and additional multiple other white matter hypodensity more likely related to chronic white matter ischemic changes. CTA head and neck negative for acute process. Labs completed and reviewed. CBC showing normocytic anemia with hemoglobin of 12.9. Coagulation profile normal findings. BMP showing sodium 136, BUN 23, and blood glucose of 85. Calcium was elevated at 10.3 and total bili elevated at 1.4. Troponin was negative at less than 0.012. MRI brain showing hypointense cortex left posterior parietal region may be acute ischemic changes, subcortical white matter hypertensive he within the right occipital lobe could be a small acute ischemic area and additional patchy periventricular and subcortical white matter changes on inversion recovery compatible with chronic white matter ischemic changes. Echocardiogram was completed showing a preserved EF of 50 to 55% with mild right ventricular dilation and mild pulmonary hypertension, mild biatrial dilation, moderate mitral regurgitation with postrepair changes noted and mild perforation versus leak from posterior mitral leaflet seen with mild tricuspid regurgitation. Patient underwent a RENAE and personally verified RENAE report with milieu counselor, Dr. Thomas stating there is no evidence of thrombus in KELSEY or left atrial append age stating no surgical intervention needed and continue with medical management. Neurology recommending discharge home on Plavix indefinitely. Cardiology starting patient back on aspirin as well. Patient to continue with statin 80 mg nightly and dual antiplatelet therapy with aspirin and Plavix for 21 days and then instructed to discontinue aspirin and remain on Plavix indefinitely. Patient discharged home with 30-day event monitor. To follow-up with PCP in 1 to 2 days, neurologist in 1 to 2 weeks, and milieu counselor in 1 to 2 weeks. Physical exam: Vital signs reviewed and stable. General: Nontoxic, no distress and appears stated age. Derm: Skin warm and dry, normal coloration for ethnicity. Head: Atraumatic, normocephalic and symmetric. Eyes: EOM's intact, no lid lag, and anicteric sclera Mouth: no lip lesions, mucus membranes moist Cardiovascular: regular rate and rhythm with normal S1S2, systolic murmur, positive posterior tibial pulses bilaterally, and cap refill < 2 seconds. Lungs: Respirations even, regular, and unlabored on room air. Lungs CTA bilaterally, no rhonchi, no rales, no wheezing, and no accessory muscle usage. Abdominal: soft, nontender to palpation, no guarding, no appreciable organomegaly Ext: No gross muscle atrophy, no edema, no contractures. Movement and sensation intact. Patient is unsteady upon standing with noted balance difficulties. Neuro: Speech clear, face symmetrical and CN II-XII grossly intact with no noted focal neuro deficits Psych: Alert and oriented to person, place, time, and situation. Appropriate and pleasant affect. A total of 33 minutes of time were spent preparing this complex discharge summary. Pt was discharged on 03/20/25 at 4:52 PM Patient was seen independently by Nurse Practitioner. This document was prepared using [employer] dictation software. Please allow for errors in treating and pumping supervisor while rare they do occur. Ok Espinoza NP rendered care for this patient independently, reviewed the findings and plan as documented in the note above. I did not physically speak with or examine the patient on this date. Patient Condition at Discharge: Stable Plan - Discharge Summary New Discharge Prescriptions: New Clopidogrel [Plavix] 75 mg PO DAILY 90 Days #90 tab Continue Biotin 10,000 mcg PO DAILY Aspirin [Adult Low Dose Aspirin EC] 81 mg PO DAILY lisinopriL [Zestril] 5 mg PO HS Sertraline [Zoloft] 50 mg PO HS Levothyroxine Sodium [Synthroid] 88 mcg PO DAILY Cyanocobalamin (Vitamin B-12) [Vitamin B-12] 1,000 mcg PO DAILY Zolpidem [Ambien] 5 mg PO HS PRN PRN Reason: Insomnia Atorvastatin [Lipitor] 80 mg PO DAILY Famotidine [Pepcid] 20 mg PO BID Docusate [Colace] 100 mg PO DAILY Discontinued Metoprolol Tartrate 12.5 mg PO DAILY Discharge Medication List Aspirin [Adult Low Dose Aspirin EC] 81 mg PO DAILY 07/05/21 [History] Atorvastatin [Lipitor] 80 mg PO DAILY 07/05/21 [History] Biotin 10,000 mcg PO DAILY 07/05/21 [History] Sertraline [Zoloft] 50 mg PO HS 07/05/21 [History] lisinopriL [Zestril] 5 mg PO HS 07/05/21 [History] Famotidine [Pepcid] 20 mg PO BID 06/23/23 [History] Levothyroxine Sodium [Synthroid] 88 mcg PO DAILY 06/23/23 [History] Cyanocobalamin (Vitamin B-12) [Vitamin B-12] 1,000 mcg PO DAILY 03/17/25 [History] Docusate [Colace] 100 mg PO DAILY 03/17/25 [History] Zolpidem [Ambien] 5 mg PO HS PRN 03/17/25 [History] Clopidogrel [Plavix] 75 mg PO DAILY 90 Days #90 tab 03/20/25 [Rx] Follow up Appointment(s)/Referral(s): Ankur Kim DO [Primary Care Provider] - 1-2 days Vianey Joshua MD [REFERRING] - 1 Week Geovanny Thomas MD [Medical Doctor] - 1 Week Patient Instructions/Handouts: Ischemic Stroke (GEN) Activity/Diet/Wound Care/Special Instructions: Activity: As tolerated. Walk with cane or walker at all times. Take breaks as needed. Diet: Heart healthy and carb consistent diet. . Special Instructions: Take all of your medications as directed and remember to keep all of your doctor's appointments and follow-up as needed. Continue dual antiplatelet therapy with aspirin and Plavix for 21 days then discontinue aspirin and you will need to remain on Plavix indefinitely. You are being discharged home with event monitor, results to be sent to cardiology office for follow-up. Thank you for allowing us to participate in your care, it was truly a pleasure having you for our patient!!! Discharge Disposition: HOME SELF-CARE
--- NOTE | 2025-03-20 16:57 | P.PN ---
Subjective Progress Note Date: 03/20/25 I am following up with the patient and he states he has not had any further episodes of any neurological deficits. He feels he is back at baseline. The transesophageal echocardiogram was completed today and there is no thrombus or shunt noted. Seems in the impression of RENAE it is reported as there is a thrombus but in body there is no thrombus and according to the primary team nurse practitioner she reached out to the event staff and he stated that he missed reported that in the impression and there is no thrombus. An event monitor was placed. Objective - Vital Signs Vital signs: Vital Signs Temp 97.6 F 03/20/25 11:23 Pulse 63 03/20/25 13:25 Resp 15 03/20/25 13:25 BP 115/75 03/20/25 13:25 Pulse Ox 96 03/20/25 13:25 FiO2 Intake & Output 03/19/25 03/20/25 03/20/25 18:59 06:59 18:59 Intake Total 598 200 Balance 598 200 Weight 80 kg Intake: IV 200 Oral 598 Other: Voiding Method Toilet Toilet Toilet # Voids 2 1 - Exam GENERAL: The patient is sitting in a recliner chair and is not in acute distress. NEUROLOGICAL: Higher mental function: The patient is awake, alert, oriented to self, place and time. Patient is following commands. No aphasia and no neglect. Cranial nerves: The pupils are round, equal and reactive to light and accommodation. Visual cabral are full to confrontation throughout. Extraocular movement is intact no nystagmus is noted. Facial sensation is normal to touch throughout. The facial strength is normal throughout. Hearing is severely bilaterally to hand rub. Tongue is midline and moved [id number] without any difficulty. No dysarthria is noted. Shoulder shrug is normal bilaterally. Motor: The strength is 5 over 5 throughout. Normal tone and bulk. Cerebellum: Normal finger to nose bilaterally. Sensation: Sensation is normal to touch throughout. Reflexes (right/left): 2+ throughout. Plantars are mute bilaterally. Some of the work-up during this hospital visit consisted of: Lipid panel: TG 70, cholestrol 136, LDL 53 and HDL 68 I reviewed the lab work-up. CT head: There is a triangular hypodenisity area within the left watershed area may be acute or chronic ischemic changes. This is age indeterminate. I personally reviewed CT head and I did appreciated the finding reported. CTA head and neck: No flow limiting stenosis bilateral carotid bifurcation. Normal [place]. MRI Brain: Hyperintense cortex left posterior parietal region maybe acute ische julio change. I personally reviewed MRI and agree there is stroke over the left parietal region and seems more cortical. There is slight hyperintense region over the left parietal but without ADC correlation. 2D echo: EF 55%. Moderate MR with post repair changes noticed. Mild performation vs leak from posterior mitral leaflet seen. RENAE impression No evidence of [id number] intracardiac shunting on bubble study Moderate biatrial dilatation with evidence of thrombus in KELSEY or left atrial appendage Mild mitral regurgitation. Postoperative changes noticed in posterior mitral leaflet with mild leak between P2 and P3 competent. Mild tricuspid regurgitation Normal global LV size and systolic function. In body of report Left Atrium: Moderate left atrial dilatation. No evidence of mass or thrombus seen Left Atrial Appendage: No evidence of thrombus or mass seen in KELSEY Inter atrial septum: Intact inter-atrial septum with no evidence of atrial septal defect or patent foramen ovale. No evidence of [id number] intracardiac shunting on bubble study - Labs CBC & Chem 7: 03/18/25 07:59 03/18/25 07:59 Assessment and Plan Assessment: This is an 84-year-old gentleman who present emergency department because of feeling off and speech difficulty. Seems that he had a comprehending words. He also had difficulty getting his words out and was dropping things with his hands. Currently he is back to baseline. CT of the head there is a concern of hypodensity over the left hemisphere over the watershed area that is acute to chronic. Acute ischemic stroke (stroke over the left parietal cortical region small in size on MRI Brain). Etiology of stroke seems especially with prior stroke is concerning of cardioembolic. RENAE is no thrombus and shunt. Mild performation vs leak from posterior mitral leaflet seen on recent 2D echo History of TIA in 2007 History of stroke in 2009 and with residual balance issues and hearing loss History of mitral valve repair Hypertension is controlled Plan: Patient was on home dose of aspirin 81 mg daily and was given aspirin 325 daily. I discontinued his home dose of aspirin and started him on Plavix 75 mg daily. Patient states that he bruises easily and that is the reason why I did not place the patient on dual antiplatelet. The event staff placed the patient on ASA in addition to Plavix. I will defer the use of dual antiplatelets to event staff. He is on Lipitor 80 mg nightly and from neurology perspective can be on 40. Continue neurochecks Cardiac monitoring PT OT and ACCOUNT SERVICE ASSOCIATE are consulted Patient event monitor was placed today and recommend it for 30-days. RENAE: I was notified by primary team N.P. that she reached out to event staff and there is no thrombus and no shunt and he misreported it on impression. Cardiology is consulted. Will defer the rest of the medical management to the primary and other specialist For DVT prophylaxis the patient is on Lovenox Upon discharge recommend the patient to follow-up with a neurologist as an outpatient within 2 to 3 weeks The plan is discussed with the patient and primary team N.P. There is no further neurological work-up. Will sign off. Please reconsult if needed. Time with Patient: Less than 30
[2025-03-20 16:59] VITALS: BP 154/74; PULSE 87; RESP 18; TEMP 97.5
== END 2025-03-20 18:18 | disposition home or self-care (01) | DRG 66 ==
LOC: EC 15:10 → 3SCARD 16:23
PROVIDERS: ADMIT Student in an Organized Health Care Education/Training Program; ATTEND Student in an Organized Health Care Education/Training Program
PROC: B24BZZ4 Ultrasonography of Heart with Aorta, Transesophageal (ICD-10-PCS; principal; 2025-03-20 17:25)
DX: I63.9 Cerebral infarction, unspecified (principal); I27.20 Pulmonary hypertension, unspecified; I10 Essential (primary) hypertension; I69.398 Other sequelae of cerebral infarction; E03.9 Hypothyroidism, unspecified; I34.1 Nonrheumatic mitral (valve) prolapse; D64.9 Anemia, unspecified; R29.706 NIHSS score 6; K21.9 Gastro-esophageal reflux disease without esophagitis; M19.90 Unspecified osteoarthritis, unspecified site; R47.01 Aphasia; H91.93 Unspecified hearing loss, bilateral; I25.10 Atherosclerotic heart disease of native coronary artery without angina pectoris; I45.10 Unspecified right bundle-branch block; Z79.82 Long term (current) use of aspirin; E83.52 Hypercalcemia; E78.5 Hyperlipidemia, unspecified; Z87.891 Personal history of nicotine dependence; Z79.890 Hormone replacement therapy; Z79.899 Other long term (current) drug therapy; Z87.442 Personal history of urinary calculi; Z87.74 Personal history of (corrected) congenital malformations of heart and circulatory system; Z95.1 Presence of aortocoronary bypass graft; Z96.611 Presence of right artificial shoulder joint; Z97.4 Presence of external hearing-aid; Z28.21 Immunization not carried out because of patient refusal
CPT/HCPCS: 36415; 70450; 70496; 70498; 70551; 71045; 80053; 80061; 82550; 83036; 83735; 84439; 84443; 84484; 85025; 85027; 85610; 85730; 93005; 93270; 93306; 93312; 93320; 93325; 96360; 96361; 99291